=== PATIENT | male | born 1955 | race Caucasian/White ===

== ENCOUNTER → 2016-12-26 | Outpatient (CLI) | payer OTHER ==
[~2016-12-26] VITALS: Ht 182.9 cm; Wt 116.1 kg
[~2016-12-26] MED LIST: ASPI81TA85 PO; ATOR1TAB18 PO; BISO5TAB5 PO; GLIM4TAB PO; LIDOCAINE 2% INJ 100 MG/5 ML SDV (FOR ANES.) As Ordered ONE; LISI10TA4 PO; METF1000 PO; NS 1,000 ML IV SCH; OMEG100011 PO; PANT40TA2 PO; PROPOFOL 200 MG/20 ML VIAL As Ordered ONE; ZETI10TA2 PO; fentaNYL 100 MCG/2 ML INJECTION (J3010) As Ordered ONE
--- NOTE | 2016-12-26 11:12 | ROOR ---
Patient Name: Jn Osborn Procedure Date: 12/26/2016 10:51 AM Date of : 1955 Age: 61 Room: [facility] [place] Gender: Male Note Status: Finalized Procedure: Upper GI endoscopy + Biopsies Indications: Heartburn, Follow-up of Clay's esophagus Providers: Ousmane Roland MD Referring MD: MIRIAN ZHANG MD Requesting Provider: Medicines: Monitored Anesthesia Care Complications: No immediate complications. Procedure: Pre-Anesthesia Assessment: - The heart rate, respiratory rate, oxygen saturations, blood pressure, adequacy of pulmonary ventilation, and response to care were monitored throughout the procedure. The Endoscope was introduced through the mouth, and advanced to the second part of duodenum. The upper GI endoscopy was accomplished without difficulty. The patient tolerated the procedure well. Findings: The Z-line was irregular and was found 40 cm from the incisors. Multiple biopsies were obtained with cold forceps for evaluation to rule out Clay's Esophagus randomly at the gastroesophageal junction. A small hiatal hernia was present. No other significant abnormalities were identified in a careful examination of the stomach. The exam of the duodenum was otherwise normal. Impression: - Z-line irregular, 40 cm from the incisors. - Small hiatal hernia. - Multiple biopsies were obtained at the gastroesophageal junction. - The examination was otherwise normal. Recommendation: - Patient has a contact number available for emergencies. The signs and symptoms of potential delayed complications were discussed with the patient. Return to normal activities tomorrow. Written discharge instructions were provided to the patient. - High fiber diet. - Discharge patient to home. - Follow an antireflux regimen. - Continue present medications. - Await pathology results. - Telephone GI clinic for pathology results in 1 week. - Return to referring physician. - The findings and recommendations were discussed with the patient's family. Ousmane Roland MD Ousmane Roland MD 12/26/2016 11:11:47 AM This report has been signed electronically. Number of Addenda: 0 Note Initiated On: 12/26/2016 10:51 AM Estimated Blood Loss: Estimated blood loss: none.
--- NOTE | 2016-12-26 11:48 | ROOR ---
Patient Name: Jn Osborn Procedure Date: 12/26/2016 10:52 AM Date of : 1955 Age: 61 Room: [facility] [place] Gender: Male Note Status: Finalized Procedure: Colonoscopy to Cecum + Cold Snare Polypectomy + Hemoclips Indications: Screening for colorectal malignant neoplasm, Last colonoscopy: 2006 Providers: Ousmane Roland MD Referring MD: MIRIAN ZHANG MD Requesting Provider: Medicines: Monitored Anesthesia Care Complications: No immediate complications. Procedure: Pre-Anesthesia Assessment: - The heart rate, respiratory rate, oxygen saturations, blood pressure, adequacy of pulmonary ventilation, and response to care were monitored throughout the procedure. The Colonoscope was introduced through the anus and advanced to the cecum, identified by appendiceal orifice and ileocecal valve. The colonoscopy was performed without difficulty. The patient tolerated the procedure well. The quality of the bowel preparation was excellent. Findings: The perianal and digital rectal examinations were normal. Non-bleeding internal hemorrhoids were found during retroflexion. The hemorrhoids were small and Grade I (internal hemorrhoids that do not prolapse). Scattered small-mouthed diverticula were found in the recto-sigmoid colon, sigmoid colon and descending colon. A medium polyp was found in the proximal transverse colon. The polyp was sessile. The polyp was removed with a cold snare. Resection and retrieval were complete. To prevent bleeding after the polypectomy, one hemostatic clip was successfully placed (MR conditional). There was no bleeding at the end of the procedure. A small polyp was found at 50 cm proximal to the anus. The polyp was sessile. The polyp was removed with a cold snare. Resection and retrieval were complete. To prevent bleeding after the polypectomy, one hemostatic clip was successfully placed (MR conditional). There was no bleeding at the end of the procedure. Multiple sessile polyps were found at 30 cm proximal to the anus. The polyps were small in size. These polyps were removed with a cold snare. Resection and retrieval were complete. The exam was otherwise without abnormality on direct and retroflexion views. Impression: - Non-bleeding internal hemorrhoids. - Diverticulosis in the recto-sigmoid colon, in the sigmoid colon and in the descending colon. - One medium polyp in the proximal transverse colon, removed with a cold snare. Resected and retrieved. Clip (MR conditional) was placed. - One small polyp at 50 cm proximal to the anus, removed with a cold snare. Resected and retrieved. Clip (MR conditional) was placed. - Multiple small polyps at 30 cm proximal to the anus, removed with a cold snare. Resected and retrieved. - The examination was otherwise normal on direct and retroflexion views. - The exam was otherwise normal to the cecum. Recommendation: - Patient has a contact number available for emergencies. The signs and symptoms of potential delayed complications were discussed with the patient. Return to normal activities tomorrow. Written discharge instructions were provided to the patient. - High fiber diet. - Discharge patient to home. - Continue present medications. - Await pathology results. - Telephone GI clinic for pathology results in 1 week. - Repeat colonoscopy in 5 years for surveillance based on pathology results. - Return to referring physician. - The findings and recommendations were discussed with the patient's family. Ousmane Roland MD Ousmane Roland MD 12/26/2016 11:47:38 AM This report has been signed electronically. Number of Addenda: 0 Note Initiated On: 12/26/2016 10:52 AM Estimated Blood Loss: Estimated blood loss: none.
[2016-12-26 12:04] VITALS: BP 148/79
== END ==
LOC: M OPP 09:40
PROVIDERS: ATTEND Internal Medicine Gastroenterology
DX: Z12.11 Encounter for screening for malignant neoplasm of colon (principal); D12.5 Benign neoplasm of sigmoid colon; D12.3 Benign neoplasm of transverse colon; K57.30 Diverticulosis of large intestine without perforation or abscess without bleeding; K64.0 First degree hemorrhoids; Z86.010 Personal history of colon polyps; K22.70 Barrett's esophagus without dysplasia; K22.8 Other specified diseases of esophagus; K44.9 Diaphragmatic hernia without obstruction or gangrene; E78.5 Hyperlipidemia, unspecified; I10 Essential (primary) hypertension; E11.9 Type 2 diabetes mellitus without complications; I25.10 Atherosclerotic heart disease of native coronary artery without angina pectoris; G47.30 Sleep apnea, unspecified; I25.2 Old myocardial infarction; R06.83 Snoring; Z88.0 Allergy status to penicillin; Z88.8 Allergy status to other drugs, medicaments and biological substances; Z79.82 Long term (current) use of aspirin; Z79.84 Long term (current) use of oral hypoglycemic drugs; Z79.899 Other long term (current) drug therapy; Z87.891 Personal history of nicotine dependence; Z95.5 Presence of coronary angioplasty implant and graft; Z80.3 Family history of malignant neoplasm of breast
CPT/HCPCS: 43239; 45385; 88305; 99156; 99157; J3010

== ENCOUNTER → 2017-01-28 | Outpatient (CLI) | payer OTHER ==
[~2017-01-28] MED LIST changes: -LIDOCAINE 2% INJ 100 MG/5 ML SDV (FOR ANES.) As Ordered ONE; -NS 1,000 ML IV SCH; -PROPOFOL 200 MG/20 ML VIAL As Ordered ONE; -fentaNYL 100 MCG/2 ML INJECTION (J3010) As Ordered ONE
[2017-01-30 00:07] LABS: PLASMA COBALT 4.8 ug/L (0.0-0.9)
== END ==
LOC: M WUC 09:41
PROVIDERS: ATTEND Orthopaedic Surgery
DX: T56.891A Toxic effect of other metals, accidental (unintentional), initial encounter (principal); M25.559 Pain in unspecified hip; T56.2X1A Toxic effect of chromium and its compounds, accidental (unintentional), initial encounter

== ENCOUNTER → 2017-06-18 | Outpatient (CLI) | payer OTHER ==
[~2017-06-18] MED LIST changes: -ATOR1TAB18 PO; +ATOR80TA59 PO; -METF1000 PO; +METF10004 PO; -ZETI10TA2 PO; +ZETI10TA30 PO
[2017-06-18 13:16] LABS: BASO % 0.8 % (0.0-1.0); EOS # 0.4 K/mm3 (0.0-0.50); EOS % 5.8 % (0.0-3.0); LARGE UNSTAINED CELL # 0.1 K/mm3 (0.0-0.4); LARGE UNSTAINED CELL % 1.6 % (0.0-4.0); LYMPH # 1.6 K/mm3 (1.5-4.5); LYMPH % 24.3 % (24.0-44.0); MEAN CORPUSCULAR HEMOGLOBIN 30.2 pg (27.0-33.0); MEAN CORPUSCULAR VOLUME 91.6 fl (80.0-96.0); MONO # 0.3 K/mm3 (0.0-0.8); MONO % 5.1 % (0.0-5.0); NEUTROPHILS # 3.9 K/mm3 (1.8-7.7); NEUTROPHILS % 62.4 % (36.0-66.0); PLATELET COUNT, AUTOMATED 170 k/mm3 (150-450); RED CELL DISTRIBUTION WIDTH 13.3 % (11.5-14.5); WHITE BLOOD COUNT 6.2 K/mm3 (4.0-10.0)
[2017-06-18 13:39] LABS: ALBUMIN 3.6 GM/DL (3.2-5.2); ALBUMIN/GLOBULIN RATIO 1.13 (1.00-1.93); ALKALINE PHOSPHATASE 75 U/L (45-117); ALT/SGPT 26 U/L (12-78); ANION GAP 6 MEQ/L (8-16); AST/SGOT 17 U/L (15-37); BILIRUBIN,TOTAL 0.9 MG/DL (0.2-1.0); BLOOD UREA NITROGEN 9 MG/DL (7-18); CALCIUM LEVEL 8.7 MG/DL (8.8-10.2); CARBON DIOXIDE LEVEL 28 MEQ/L (21-32); CHLORIDE LEVEL 107 MEQ/L (98-107); CHOLESTEROL LEVEL 94 MG/DL (<200); CREATININE FOR GFR 0.71 MG/DL (0.70-1.30); GLOMERULAR FILTRATION RATE > 60.0 (>49); GLUCOSE, FASTING 115 MG/DL (80-110); POTASSIUM SERUM 4.6 MEQ/L (3.5-5.1); SODIUM LEVEL 141 MEQ/L (136-145); TOTAL PROTEIN 6.8 GM/DL (6.4-8.2); TRIGLYCERIDES LEVEL 55 MG/DL (<150)
== END ==
LOC: M WUC 09:07
PROVIDERS: ATTEND Nurse Practitioner Family
DX: G47.33 Obstructive sleep apnea (adult) (pediatric) (principal); E11.9 Type 2 diabetes mellitus without complications; I10 Essential (primary) hypertension

== ENCOUNTER 2017-10-02 20:47 | Emergency (ER) | payer OTHER ==
[~2017-10-02] VITALS: Ht 182.9 cm; Wt 110.0 kg
[2017-10-02] MEDS ORDERED: BACLOFEN 10 MG TAB PO ONE (22:45)
[2017-10-02] MEDS ORDERED: PERCOCET 5MG/325MG TAB PO ONE (22:45)
[2017-10-03] MEDS ORDERED: MORPHINE 4 MG/ML 1ML SYRINGE IV ONE
--- NOTE | 2017-10-03 00:40 | REPUSA ---
CLINICAL HISTORY: Back pain. TECHNIQUE: Multiple axial images were obtained through the L1-L2, L2-L3, L3-L4, L4-L5 and L5-S1 inter spaces. Images were also reconstructed in coronal and sagittal planes. COMMENTS: Mild osteopenia of the visualized bones. Mild degenerative levoscoliosis apex at L3.There are diffuse spondylotic changes. Findings are demonstrated by disc space narrowing, osteophyte formation and deg enerative endplate changes. Facet joint arthropathy. No fracture or dislocation is seen. No aggressiv e bone lesion is noted. At L5-S1, moderate diffuse disc bulge and posterior osteophyte formation. Bilateral facet joint arthr opathy more prominent on the left side. Mild concentric spinal canal stenosis. Moderate right and sev ere left neural foramina narrowing. At L4-L5, moderate diffuse disc bulge and posterior osteophyte formation. Bilateral facet joint arthr opathy and ligamentum flavum hypertrophy. Severe concentric spinal canal stenosis. Moderate bilateral neural foramina narrowing. At L3-L4, mild diffuse disc bulge. Superimposed broad-based central disc protrusion. Bilateral facet joint arthropathy and ligamentum flavum hypertrophy. Mild concentric spinal canal stenosis. Moderate bilateral neural foramina narrowing. At L2-L3, moderate diffuse disc bulge. Bilateral facet joint arthropathy and ligamentum flavum hypert rophy. The spinal canal is not narrowed. Mild bilateral neural foramina narrowing. At L1-L2, moderate diffuse disc bulge. Bilateral facet joint arthropathy and ligamentum flavum hypert rophy. The spinal canal is not narrowed. Mild bilateral neural foramina narrowing. At T12-L1, mild diffuse disc bulge and posterior osteophyte formation. The spinal canal is not narrow ed. Mild bilateral neural foramina narrowing. Atherosclerotic, tortuous ectatic aorta iliac arteries. Impression: Spondylosis. Multilevel degenerative disc disease. Multilevel significant spinal canal and neural foramina stenosis as detailed above. Thank you for your kind referral of this patient.
[2017-10-03] MEDS ORDERED: KETOROLAC 30 MG/ML VIAL (J1885) IV ONE (01:00)
[2017-10-03] MEDS ORDERED: VALI5TAB PO (01:39)
[2017-10-03] MEDS ORDERED: KETO10TAB PO (01:39)
[2017-10-03 02:11] VITALS: BP 111/54
== END 2017-10-03 02:13 | disposition home or self-care (01) ==
LOC: M ED 20:47
DX: M48.07 Spinal stenosis, lumbosacral region (principal); M48.061 Spinal stenosis, lumbar region without neurogenic claudication; M47.816 Spondylosis without myelopathy or radiculopathy, lumbar region; M51.36 Other intervertebral disc degeneration, lumbar region; M51.26 Other intervertebral disc displacement, lumbar region; M51.27 Other intervertebral disc displacement, lumbosacral region; M51.24 Other intervertebral disc displacement, thoracic region; M51.25 Other intervertebral disc displacement, thoracolumbar region; G89.29 Other chronic pain; I25.10 Atherosclerotic heart disease of native coronary artery without angina pectoris; E11.9 Type 2 diabetes mellitus without complications; G47.33 Obstructive sleep apnea (adult) (pediatric); E78.5 Hyperlipidemia, unspecified; F17.210 Nicotine dependence, cigarettes, uncomplicated; I25.2 Old myocardial infarction; Z79.899 Other long term (current) drug therapy; Z79.82 Long term (current) use of aspirin; Z88.0 Allergy status to penicillin; Z88.8 Allergy status to other drugs, medicaments and biological substances; Z86.79 Personal history of other diseases of the circulatory system; Z87.828 Personal history of other (healed) physical injury and trauma; Z98.890 Other specified postprocedural states; Z95.5 Presence of coronary angioplasty implant and graft
CPT/HCPCS: 72131; 96374; 96375; 99284; J1885; J3360

== ENCOUNTER → 2017-10-07 | Outpatient (CLI) | payer OTHER ==
[~2017-10-07] MED LIST changes: +KETO10TAB PO; +VALI5TAB PO
[2017-10-07 18:00] LABS: BASO % 0.4 % (0.0-1.0); EOS # 0.3 10^3/uL (0.0-0.50); EOS % 4.4 % (0.0-3.0); IMMATURE GRANULOCYTE % 0.4 % (0-0); LYMPH # 1.9 10^3/uL (1.5-4.5); MEAN CORPUSCULAR HEMOGLOBIN 29.6 pg (27.0-33.0); MEAN CORPUSCULAR HGB CONC 32.9 g/dl (32.0-36.5); MEAN CORPUSCULAR VOLUME 90.1 fl (80.0-96.0); MONO # 0.5 10^3/uL (0.0-0.8); MONO % 6.9 % (0.0-5.0); NEUTROPHILS # 4.7 10^3/uL (1.8-7.7); NEUTROPHILS % 62.9 % (36.0-66.0); PLATELET COUNT, AUTOMATED 221 10^3/uL (150-450); WHITE BLOOD COUNT 7.5 10^3/uL (4.0-10.0)
[2017-10-07 18:41] LABS: ALBUMIN/GLOBULIN RATIO 1.21 (1.00-1.93); ALKALINE PHOSPHATASE 82 U/L (45-117); ALT/SGPT 31 U/L (12-78); ANION GAP 7 MEQ/L (8-16); AST/SGOT 15 U/L (7-37); BILIRUBIN,TOTAL 1.5 MG/DL (0.2-1.0); BLOOD UREA NITROGEN 15 MG/DL (7-18); CALCIUM LEVEL 9.3 MG/DL (8.8-10.2); CARBON DIOXIDE LEVEL 29 MEQ/L (21-32); CHLORIDE LEVEL 101 MEQ/L (98-107); CHOLESTEROL LEVEL 118 MG/DL (<200); CREATININE FOR GFR 0.79 MG/DL (0.70-1.30); GLOMERULAR FILTRATION RATE > 60.0 (>49); GLUCOSE, FASTING 101 MG/DL (80-110); POTASSIUM SERUM 4.8 MEQ/L (3.5-5.1); SODIUM LEVEL 137 MEQ/L (136-145); TOTAL PROTEIN 7.3 GM/DL (6.4-8.2); TRIGLYCERIDES LEVEL 99 MG/DL (<150)
== END ==
LOC: M WUC 11:03
PROVIDERS: ATTEND Nurse Practitioner Family
DX: G47.33 Obstructive sleep apnea (adult) (pediatric) (principal); I10 Essential (primary) hypertension; E11.9 Type 2 diabetes mellitus without complications

== ENCOUNTER 2017-11-12 13:59 | Inpatient (IN) | payer OTHER ==
[~2017-11-12] VITALS: Ht 177.8 cm; Wt 114.0 kg
[2017-11-12] MEDS ORDERED: MELO15TA4 PO (14:16)
[2017-11-12] MEDS ORDERED: HYDR-3713 PO (14:16)
[2017-11-12] MEDS ORDERED: PERCOCET 5MG/325MG TAB PO ONE (14:45)
[2017-11-12 16:59] LABS: MEAN CORPUSCULAR HEMOGLOBIN 29.7 pg (27.0-33.0); MEAN CORPUSCULAR HGB CONC 34.9 g/dl (32.0-36.5); MEAN CORPUSCULAR VOLUME 85.2 fl (80.0-96.0); PLATELET COUNT, AUTOMATED 206 10^3/uL (150-450); RED CELL DISTRIBUTION WIDTH 12.5 % (11.5-14.5); WHITE BLOOD COUNT 9.5 10^3/uL (4.0-10.0)
[2017-11-12] MEDS ORDERED: GLUCOSE 4 GM CHEW TABLET PO PRN (18:00)
[2017-11-12] MEDS ORDERED: ONDANSETRON 4MG/2ML VIAL (J2405) IV PRN (18:00)
[2017-11-12] MEDS ORDERED: PERCOCET 5MG/325MG TAB PO PRN (18:00)
[2017-11-12] MEDS ORDERED: BISACODYL 10 MG SUPP PR PRN (18:00)
[2017-11-12] MEDS ORDERED: GLUCAGON FOR INJ 1 MG VIAL (J1610) SC PRN (18:00)
[2017-11-12] MEDS ORDERED: DEXTROSE 50% 50 ML SYRINGE IV PRN (18:00)
[2017-11-12] MEDS ORDERED: METF-839 PO (18:23)
[2017-11-12] MEDS ORDERED: CYCLOBENZAPRINE 5MG TABLET PO ONE (18:30)
--- NOTE | 2017-11-12 19:55 | HPEPDOC ---
General Date of Admission Nov 12, 2017 at 17:50 Primary Care Physician: Kaye Harrison [employer] INVESTIGATOR Attending Physician: JUDD ROWE MD Chief Complaint The patient is a 62-year-old male admitted with a reason for visit of Hip Pain, Inability To Ambulate Due To Hip. Source: Patient Exam Limitations: No limitations History of Present Illness Mr. Osborn is a 62-year-old male who presents to the emergency department with left hip pain. He states that he has been suffering from left hip pain for a few weeks now. Approximately 3 weeks ago he was seen and evaluated in the [facility] emergency department for low back pain and hip pain, a CT of the lumbar spine was obtained which showed mild to moderate disc bulging at multiple segments, but no specific etiology for his pain was told to him at that time. He was also seen 8 days ago by his orthopedic surgeon at [facility] for the same who took some x-rays in the office and informed him that his left hip prosthesis was in good position and gave him some pain medications and asked him to return to the office in 6 weeks if he continued to have problems. Earlier today he was sitting at the dinner table, he went to stand up when he felt an exquisitely sharp pain in the left hip, he sat right back down, and then he was unable to move from the chair because of pain. He states that the pain originates in his back and radiates down into the left hip, across the left lateral thigh and into the knee. Because he was unable to move the called EMS who lifted him on a stretcher and brought him into the emergency department for further evaluation. Emergency department did a hip x-ray series which was unremarkable. Home Medications Scheduled Aspirin (Aspir-81) 81 Mg Tab, 81 MG PO DAILY, (Reported) Atorvastatin Calcium (Atorvastatin Calcium) 80 Mg Tab, 80 MG PO QHS, (Reported) Bisoprolol Fumarate (Bisoprolol Fumarate) 5 Mg Tab, 2.5 MG PO DAILY, (Reported) Ezetimibe (Zetia) 10 Mg Tab, 10 MG PO DAILY, (Reported) Glimepiride (Glimepiride) 4 Mg Tab, 4 MG PO DAILY, (Reported) Lisinopril (Lisinopril) 10 Mg Tab, 10 MG PO QHS, (Reported) Meloxicam (Meloxicam) 15 Mg Tab, 15 MG PO QPM, (Reported) Metformin Hydrochloride (Metformin Hydrochloride) 500 Mg Tab, 1,000 MG PO BID, ( Reported) [place] 3 Polyunsat Fatty Acids ([place] 3 1000 mg) 1 Cap Cap, 2 CAP PO DAILY, ( Reported) Pantoprazole Sodium (Pantoprazole Sodium) 40 Mg Tab, 40 MG PO DAILY, (Reported) Scheduled PRN Acetaminophen/Hydrocodone (Hydrocodone/Acetaminophen 5-325 mg) 1 Tab Tab, 1 TAB PO Q6H PRN for PAIN, (Reported) Allergies Coded Allergies: Penicillins (Verified Allergy, Severe, THROAT SWELLING, 12/20/16) Penicillins Cross Reactors (Verified Allergy, Severe, THROAT SWELLING, 02/23) Bupropion (Verified Allergy, Unknown, 02/23/13) Past Medical History Medical History Diabetes mellitus type 2 Coronary artery disease status post 6 stents, being followed by Dr. Park Obstructive sleep apnea with CPAP, being followed by Dr. Felix Hyperlipidemia GERD with Clay's esophagus, being followed by Dr. Roland Chronic wheezing, he is told that he does not have asthma nor COPD by his trouble clerk Surgical History Coronary stenting ([facility]) 2002, 2004 Right hip total hip arthroplasty (Sukhw[facility] at [facility]) 2006 Left hip total hip arthroplasty (Sukhwinder at [facility]) 2013 Left shoulder ([place]) 2012 Family History Father had congestive heart failure and diabetes mellitus and at the age of 59 of a CVA. Mother at the age of 67 with a ruptured AAA. He has 3 sisters, one had lymphoma, one has COPD, the other is healthy. 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 Denies tuberculosis exposure. Review of Systems Constitutional: Denies: Chills, Fever, Night Sweats Eyes: Denies: Pain, Vision change ENT: Denies: Head Aches, Ear Pain, Dysphagia Skin: Denies: Rash, Lesions, Breakdown Pulmonary: Denies: Dyspnea, Cough Cardiovascular: Denies: Chest Pain, Palpitations, Orthopnea, Paroxysmal Noc. Dyspnea, Lt Headedness Gastrointestinal: Denies: Nausea, Vomiting, Abdominal Pain, Diarrhea Genitourinary: Denies: Dysuria, Frequency, Incontinence, Retention Hematologic: Denies: Bruising, Bleeding Excessively Musculoskeletal: Reports: Back Pain, Leg Pain, Joint Pain, Muscle Pain, Spasms , Denies: Neck Pain Neurological: Denies: Weakness, Numbness, Change in speech, Confusion Psych: Reports: Mood Normal, Denies: Depression, Memory Issues Physical Examination General Exam: Positive: Alert, Cooperative, Moderate Distress Eye Exam: Positive: Conjunctiva & lids normal, EOMI, Negative: Sclera icteric Neck Exam: Positive: Supple, Negative: JVD, thyromegaly Chest Exam: Positive: Clear to auscultation, Normal air movement Heart Exam: Positive: Rate Normal, Regular Rhythm, Normal S1, Normal S2, Negative: Murmurs, Rubs Abdomen Exam: Positive: Normal bowel sounds, Soft, Negative: Tenderness, Hepatospenomegaly Extremity Exam: Positive: Normal pulses, Negative: Clubbing, Cyanosis, Edema Skin Exam: Positive: Nl turgor and temperature, Negative: Breakdown, Lesion Neuro Exam: Positive: Normal Gait, Normal Speech, Strength at 5/5 X4 ext (he is able to move the lower extremity, albeit it is extremely painful. Sensation is preserved throughout), Cranial Nerves 3-12 NL Psych Exam: Positive: Mental status NL, Mood NL, Oriented x 3 Vital Signs Vital Signs Date Time Temp Pulse Resp B/P (MAP) Pulse Ox O2 Delivery O2 Flow Rate FiO2 11/12/17 18:30 97.0 60 20 149/70 (96) 97 Room Air Laboratory Data Labs 24H Laboratory Tests 2 11/12/17 16:50: Nucleated Red Blood Cells % (auto) 0.0 CBC/BMP Laboratory Tests 11/12/17 16:50 Red Blood Count 5.15, Mean Corpuscular Volume 85.2, Mean Corpuscular Hemoglobin 29.7, Mean Corpuscular Hemoglobin Concent 34.9, Red Cell Distribution Width 12.5 Problems (1) Inability to ambulate due to hip Status: Acute (2) Hip pain Status: Acute (3) Low back pain Status: Acute (4) Spondylosis Status: Chronic (5) DDD (degenerative disc disease) Status: Chronic (6) Spinal stenosis of lumbosacral region Status: Chronic (7) Diabetes mellitus type 2 in obese Status: Chronic (8) Hyperlipidemia Status: Chronic (9) Coronary artery disease Status: Chronic (10) Obstructive sleep apnea on CPAP Status: Chronic (11) GERD (gastroesophageal reflux disease) Status: Chronic Plan / VTE VTE Prophylaxis Ordered?: Yes (Lovenox) Plan Plan The patient appears to be describing his pain and now mostly perfect distribution of L3. He has had x-rays, and they lumbar CT performed 3 weeks ago , however given his acute event, I feel that an MRI this time would be warranted. The patient has been given narcotics over the past few weeks, none of them have given him relief, and he does not particularly like them. I will start him on 5 mg of Flexeril by mouth every 8 hours as needed for back spasms. He is a large man though, if this is insufficient and is not causing too much sedation perhaps the dose can be increased to 10 mg. Otherwise, we'll wait until we get the results of his MRI before doing any consults, especially in light of the fact that he was seen by his surgeon just last week. CATHERINE HICKMAN DO Nov 12, 2017 19:55
[2017-11-12 20:35] VITALS: BP 148/78
[2017-11-12] MEDS: HumaLOG INSULIN (NovoLOG) PER UNIT SC SCH (21:00)
[2017-11-12] MEDS: ATORVASTATIN 20 MG TAB PO SCH (21:18)
[2017-11-12] MEDS: MORPHINE 2 MG/ML 1ML SYRINGE IV PRN (21:19)
[2017-11-12] MEDS: SENOKOT S TAB PO SCH (21:19)
[2017-11-12] MEDS: LISINOPRIL 10 MG TAB PO SCH (21:19)
[2017-11-12] MEDS: MELOXICAM (MOBIC) 7.5 MG TAB PO SCH (21:20)
[2017-11-12] MEDS: PERCOCET 5MG/325MG TAB PO PRN (23:03)
[2017-11-13 06:00] VITALS: BP 122/72
[2017-11-13 07:01] LABS: MEAN CORPUSCULAR HEMOGLOBIN 29.7 pg (27.0-33.0); MEAN CORPUSCULAR HGB CONC 34.2 g/dl (32.0-36.5); MEAN CORPUSCULAR VOLUME 86.9 fl (80.0-96.0); PLATELET COUNT, AUTOMATED 204 10^3/uL (150-450); RED CELL DISTRIBUTION WIDTH 12.7 % (11.5-14.5); WHITE BLOOD COUNT 7.8 10^3/uL (4.0-10.0)
[2017-11-13 07:06] LABS: ANION GAP 7 MEQ/L (8-16); BLOOD UREA NITROGEN 21 MG/DL (7-18); CALCIUM LEVEL 8.5 MG/DL (8.8-10.2); CARBON DIOXIDE LEVEL 29 MEQ/L (21-32); CHLORIDE LEVEL 104 MEQ/L (98-107); CREATININE FOR GFR 0.85 MG/DL (0.70-1.30); GLOMERULAR FILTRATION RATE > 60.0 (>49); GLUCOSE, FASTING 126 MG/DL (80-110); POTASSIUM SERUM 3.8 MEQ/L (3.5-5.1); SODIUM LEVEL 140 MEQ/L (136-145)
[2017-11-13] MEDS: HumaLOG INSULIN (NovoLOG) PER UNIT SC SCH ×4 (07:30→20:53)
[2017-11-13] MEDS: SENOKOT S TAB PO SCH ×2 (08:39→20:58)
[2017-11-13] MEDS: PANTOPRAZOLE 40MG TAB (PROTONIX) PO SCH (08:39)
[2017-11-13] MEDS: GLIMEPIRIDE 2 MG TAB PO SCH (08:39)
[2017-11-13] MEDS: ASPIRIN 81 MG ENTERIC TAB PO SCH (08:39)
[2017-11-13] MEDS: CYCLOBENZAPRINE 5MG TABLET PO PRN ×2 (08:46→17:16)
[2017-11-13] MEDS: PERCOCET 5MG/325MG TAB PO PRN ×3 (08:47→20:59)
[2017-11-13] MEDS: ENOXAPARIN 40 MG/0.4 ML SYRINGE (J1650) SC SCH (08:47)
[2017-11-13] MEDS: EZETIMIBE 10 MG TAB (ZETIA) PO SCH (08:50)
[2017-11-13] MEDS: BISOPROLOL FUM 2.5 MG PER 1/2TAB PO SCH (08:51)
--- NOTE | 2017-11-13 10:43 | IPNPDOC ---
Subjective Date Seen The patient was seen on 11/13/17. Subjective Chief Complaint/HPI The patient is a 62-year-old male admitted with a reason for visit of Hip Pain, Inability To Ambulate Due To Hip. Events since last encounter Continues with significant LEFT hip pain, difficulty with ambulation. MRI completed: central canal stenosis at L4-5 and L5-S1 with bilateral foraminal encroachment. Constitutional: Denies: Chills, Fever, Night Sweats ENT: Denies: Head Aches, Ear Pain, Dysphagia Pulmonary: Denies: Dyspnea, Cough Cardiovascular: Denies: Chest Pain, Palpitations, Orthopnea, Paroxysmal Noc. Dyspnea, Edema, Lt Headedness, Other Symptoms Gastrointestinal: Denies: Nausea, Vomiting, Abdominal Pain, Diarrhea, Constipation Genitourinary: Denies: Dysuria, Frequency, Incontinence, Retention Objective Physical Examination General Exam: Positive: Alert, Cooperative, Moderate Distress Eye Exam: Positive: Conjunctiva & lids normal, EOMI, Negative: Sclera icteric Neck Exam: Positive: Supple, Negative: JVD, thyromegaly Chest Exam: Positive: Clear to auscultation, Normal air movement Heart Exam: Positive: Rate Normal, Regular Rhythm, Normal S1, Normal S2, Negative: Murmurs, Rubs Abdomen Exam: Positive: Normal bowel sounds, Soft, Negative: Tenderness, Hepatospenomegaly Extremity Exam: Positive: Normal pulses, Negative: Clubbing, Cyanosis, Edema Skin Exam: Positive: Nl turgor and temperature, Negative: Breakdown, Lesion Neuro Exam: Positive: Normal Gait, Normal Speech, Strength at 5/5 X4 ext (he is able to move the lower extremity, albeit it is extremely painful. Sensation is preserved throughout), Cranial Nerves 3-12 NL Psych Exam: Positive: Mental status NL, Mood NL, Oriented x 3 Assessment /Plan Problems (1) Spinal stenosis of lumbosacral region Status: Acute Problem Specific Plan: Consult Specialist Problem Text: Needs surgical evaluation. Dr. Wynn Consulted: Disc herniation and nerve compression. Likely surgical candidate (2) Inability to ambulate due to hip Status: Acute (3) Hip pain Status: Acute (4) Low back pain Status: Acute (5) Spondylosis Status: Chronic (6) DDD (degenerative disc disease) Status: Chronic (7) Diabetes mellitus type 2 in obese Status: Chronic (8) Hyperlipidemia Status: Chronic (9) Coronary artery disease Status: Chronic (10) Obstructive sleep apnea on CPAP Status: Chronic (11) GERD (gastroesophageal reflux disease) Status: Chronic Plan/VTE VTE Prophylaxis Ordered?: Yes (Lovenox) VS, I&O, 24H, Fishbone Vital Signs/I&O Vital Signs Date Time Temp Pulse Resp B/P (MAP) Pulse Ox O2 Delivery O2 Flow Rate FiO2 11/13/17 09:40 16 Room Air 11/13/17 08:51 64 11/13/17 06:00 97.8 122/72 (89) 95 I&O- Last 24 Hours up to 6 AM 11/13/17 06:00 Intake Total 540 ml Output Total 500 ml Balance 40 ml Laboratory Data 24H LABS Laboratory Tests 2 11/12/17 16:50: Nucleated Red Blood Cells % (auto) 0.0 11/12/17 20:45: Bedside Glucose (Misc Panel) 88 11/13/17 06:25: Nucleated Red Blood Cells % (auto) 0.0, Anion Gap 7L, Glomerular Filtration Rate > 60.0, Blood Urea Nitrogen 21H, Creatinine 0.85, Sodium Level 140, Potassium Level 3.8, Chloride Level 104, Carbon Dioxide Level 29, Calcium Level 8.5L CBC/BMP Laboratory Tests 11/12/17 16:50 Red Blood Count 5.15, Mean Corpuscular Volume 85.2, Mean Corpuscular Hemoglobin 29.7, Mean Corpuscular Hemoglobin Concent 34.9, Red Cell Distribution Width 12.5 11/13/17 06:25 Red Blood Count 4.95, Mean Corpuscular Volume 86.9, Mean Corpuscular Hemoglobin 29.7, Mean Corpuscular Hemoglobin Concent 34.2, Red Cell Distribution Width 12.7 , Calcium Level 8.5 L Kaye Harrison Nov 13, 2017 10:43 Senthil Salinas MD Nov 14, 2017 18:11
[2017-11-13] MEDS: GABAPENTIN 300 MG CAP PO SCH ×3 (11:15→20:58)
[2017-11-13] MEDS: methylPREDNISolone 4 MG TAB PO SCH ×2 (11:15→20:57)
[2017-11-13 14:00] VITALS: BP 124/68
--- NOTE | 2017-11-13 15:23 | REP ---
PELVIS LEFT HIP: THREE VIEWS. HISTORY: Pain. FINDINGS: AP and frog-leg views of the left hip and AP pelvis are obtained. In the interval since the 2010 prior study of the left hip, the patient has undergone left hip arthroplasty. A right hip replacement is also in place. Bony pelvic ring is otherwise intact. No erosive changes seen. Sacrum, SI joints, and symphysis pubis are unremarkable. There are some degenerative disc changes in the lower lumbar spine. IMPRESSION: Status post bilateral hip replacements. No acute disease. Signed by Omar Mcgee MD 11/13/2017 04:58 P
--- NOTE | 2017-11-13 17:31 | REP ---
MRI LUMBAR SPINE WITHOUT CONTRAST: 11/12/2017. Comparison: CT lumbar spine without contrast 10/02/2017. Clinical history: Left leg and hip pain. Appears to be L3-L4, dermatome. Technologist notes patient unable to ambulate. Technique: Sagittal T1, T2 and STIR images with axial T1 and T2 sequences provided. Findings: Loss of normal lordosis similar to the CT last month. Disc space is narrowed and there is extensive discogenic endplate changes at L4-5 posteriorly. There is loss of disc height and disc water signal at L3-4 and L5-S1. The height at L2-3 and L1-2 were maintained. The other vertebral bodies show no other significant marrow signal abnormalities. The conus terminates at L1. T11-12, T12-L1, L1-2 and L2-3 levels show no significant disc bulge or herniation and no spinal or foraminal stenosis. At L3-4, there is a large central disc protrusion and extrusion extending inferiorly from the disc space centrally and left paracentrally behind the upper half of the L4 vertebral body. This is contiguous with the intervertebral disc space. The extruded fragment has a 15.5 mm vertical diameter with an AP diameter of 9.3 mm and a transverse diameter of 12.2 mm. This is causing significant central canal stenosis and nerve root compression centrally and on the left side of the thecal sac with obliteration of almost all of the subarachnoid space. The foramina show perineural fat without L3 nerve root compression on either side. There is a very small posterior osteophytic ridging at this level, but the disc extrusion and protrusion below it at the disc level are the major abnormality. Some hypertrophic ligamentum and facet changes are noted. At L4-5, posterior osteophytic ridging, ligamentum flavum and facet hypertrophy causing significant central canal stenosis. This is as seen on the CT last month. This abuts and displaces the L5 nerve roots in the central canal. Very little subarachnoid space remains. The posterior osteophytic ridge with associated bulge and right paracentral protrusion at this level. The foramina show encroachment with loss of perineural fat bilaterally compared to a level above. The L4 roots show some mild compression from the foraminal narrowing. At L5-S1, mild broad-based disc bulge. This abuts the right S1 nerve root but does not displace it. It abuts the left S1 nerve root. Cross-sectional area of the canal was adequate. There is foraminal encroachment compressing the bilateral L5 nerve roots. Impression: 1. Advanced degenerative disc changes with significant central disc protrusion and extrusion at L3-4 with a large extruded fragment extending below the superior endplate margin of L4 15 x 12 x 9 mm causing significant central canal stenosis and nerve root compression in the canal without foraminal stenosis at this level. The disc protrusion is broad and central and the extrusion is central and slightly towards the left. No foraminal stenosis or L3 nerve root compression. 2. Combined factors contributing to central canal stenosis at L4-5 and L5-S1 to a lesser extent, but with bilateral foraminal encroachment at those levels. 3. I would recommend urgent neurosurgical consultation if not already arranged. Signed by Mc Moody MD 11/13/2017 05:32 P
--- NOTE | 2017-11-13 18:56 | CR ---
DATE OF CONSULTATION: 11/13/2017 CONSULTATION FOR: Dr. Ocampo CHIEF COMPLAINT: Back pain, pain radiating to his left hip and left anterior thigh. HISTORY: This is a pleasant 62-year-old male patient with ongoing symptoms for about 4 weeks now. Initially his symptoms started when he bent over to cut a piece of tape on a box. Noted mainly hip pain, a little bit of pain in his back. His symptoms were quite severe. He went to the emergency room, where he was treated with medications. Recommended he followup with his operative surgeon for his hip pain on the left side, as he has had total hip arthroplasty done on both sides. He did see his operative surgeon. He did not think it was coming from his total hip. Recommended activity modification and followup, and then he had an acute flare of his symptoms yesterday and increased hip pain, pain into his left anterior thigh, and inability to bear any weight on the left side due to the pain and weakness in the left leg. He was seen in the emergency room, where numerous studies were obtained, most notably for a large disc herniation at L3-4 with severe stenosis at that level. He was admitted to the hospitalist service for medical management for his persistent symptoms. He denies any loss of bowel or bladder control. He denies any change in his bowel or bladder habits. He does note persistent pain in the leg pain, mainly in the anterior thigh and hip and groin on the left side. Some pain in his back if he coughs or sneezes, as it severely increases his symptoms. He has been treated with pain medicine since he has gotten to the hospital, and he is somewhat better with pain medications, but the symptoms on his leg pain do not allow him to ambulate without severe pain in his left leg. He has a difficult time just sitting up in the bed. CURRENT MEDICATIONS: From home: Aspirin once a day, atorvastatin as well as bisoprolol, Zetia, glimepiride, lisinopril, meloxicam, metformin, pantoprazole. He also takes Tylenol #3 for pain control. ALLERGIES: PENICILLINS and BUPROPION MEDICAL HISTORY: Includes: 1. Severe back pain, pain down his right leg. 2. Spinal stenosis at 3-4 as well as degenerative changes at 4-5 and 5-1. 3. Diabetes type 2. 4. Coronary artery disease status post stenting. 5. Sleep apnea he uses a continuous positive airway pressure (CPAP) for. 6. Elevated lipids. 7. Gastric reflux disease. PAST SURGICAL HISTORY: 1. Includes above listed stenting. 2. Bilateral hip arthroplasties. 3. Left shoulder scope. FAMILY HISTORY: Noncontributory. SOCIAL HISTORY: He continues to smoke. He rarely uses alcohol. REVIEW OF SYSTEMS: Denies fever or chills. Denies chest pain, shortness breath , or cough. Denies difficulty breathing. Denies abdominal pain. Denies nausea or vomiting. He has persistent pain in his back and pain down his left leg with activities of daily living. Denies any recent upper respiratory infection (URI) or urinary tract infection (UTI) symptoms. Denies changes bowel or bladder habits. Exam today which reveals alert, well-nourished, well-developed male patient sitting in hospital stretcher, though when he goes to sit over the edge of the bed he does grimace getting from the somewhat reclined position to sitting straight on the edge of bed. Straight leg raise testing is irritable bilaterally. Deep tendon reflexes are absent in knees and ankles. Clonus is negative. Muscle strength seems grossly 5/5, equal and symmetrical in major muscle groups. No irritability with hip range of motion. The greater trochanters are nontender to palpation. Exam of back reveals very minimal tenderness along the lumbar spine rather diffusely. No step-offs or deviations. Sacroiliac joint (SI) joints are nontender to palpation. His neck is supple without adenopathy or jugular venous distention (JVD). He is able to sensate light touch in the lower extremities. Dorsalis pedis and posterior tibial pulses are palpable. His mood and affect are appropriate for situation. He has an easy, unlabored breathing. Abdomen is soft, nontender to palpation. Numerous studies were obtained, most significantly notable for, as previously discussed, the severe stenosis at L3-4, mainly to the left side, as well as degenerative changes of L4-5 and L5-S1. No appreciable slip noted. PLAN: Reviewed the patient and the studies with Dr. Wynn. The plan is that he was consented for a lumbar decompression unilaterally at L3-[address] Wynn. Plan is for tomorrow. Nothing by mouth tonight after midnight. Patient signed the consent. He understands the plan. All the studies were reviewed with the patient and of the patient. BETHANIE
[2017-11-13] MEDS: MELOXICAM (MOBIC) 7.5 MG TAB PO SCH (20:57)
[2017-11-13] MEDS: LISINOPRIL 10 MG TAB PO SCH (20:58)
[2017-11-13] MEDS: ATORVASTATIN 20 MG TAB PO SCH (20:58)
[2017-11-13 22:00] VITALS: BP 155/76
[2017-11-14] MEDS: PERCOCET 5MG/325MG TAB PO PRN (05:24)
[2017-11-14 06:00] VITALS: BP 138/75
[2017-11-14] MEDS ORDERED: CLINDAMYCIN 600 MG in APPROPRIATE DILUENT 1 EA IV SCH (06:45)
[2017-11-14 07:30] LABS: ANION GAP 5 MEQ/L (8-16); BLOOD UREA NITROGEN 23 MG/DL (7-18); CALCIUM LEVEL 8.4 MG/DL (8.8-10.2); CARBON DIOXIDE LEVEL 29 MEQ/L (21-32); CHLORIDE LEVEL 103 MEQ/L (98-107); CREATININE FOR GFR 0.85 MG/DL (0.70-1.30); GLOMERULAR FILTRATION RATE > 60.0 (>49); GLUCOSE, FASTING 193 MG/DL (80-110); POTASSIUM SERUM 4.7 MEQ/L (3.5-5.1); SODIUM LEVEL 137 MEQ/L (136-145)
[2017-11-14] MEDS: HumaLOG INSULIN (NovoLOG) PER UNIT SC SCH ×4 (07:30→21:00)
[2017-11-14] MEDS: ENOXAPARIN 40 MG/0.4 ML SYRINGE (J1650) SC SCH (08:04)
[2017-11-14] MEDS: ASPIRIN 81 MG ENTERIC TAB PO SCH (08:05)
[2017-11-14] MEDS: GABAPENTIN 300 MG CAP PO SCH ×2 (08:09→16:00)
[2017-11-14] MEDS: EZETIMIBE 10 MG TAB (ZETIA) PO SCH (08:09)
[2017-11-14] MEDS: SENOKOT S TAB PO SCH (08:09)
[2017-11-14] MEDS: PANTOPRAZOLE 40MG TAB (PROTONIX) PO SCH (08:09)
[2017-11-14] MEDS: GLIMEPIRIDE 2 MG TAB PO SCH (08:10)
[2017-11-14] MEDS: BISOPROLOL FUM 2.5 MG PER 1/2TAB PO SCH (08:10)
[2017-11-14] MEDS: methylPREDNISolone 4 MG TAB PO SCH (08:10)
--- NOTE | 2017-11-14 09:24 | IPNPDOC ---
Subjective Date Seen The patient was seen on 11/14/17. Subjective Chief Complaint/HPI The patient is a 62-year-old male admitted with a reason for visit of Hip Pain, Inability To Ambulate Due To Hip. Events since last encounter Planned surgical repair of Lumbar disc herniation today with Dr. Wynn. Patient denies c/o. Constitutional: Denies: Chills, Fever, Night Sweats Skin: Denies: Rash, Lesions, Breakdown Pulmonary: Denies: Dyspnea, Cough Cardiovascular: Denies: Chest Pain, Palpitations, Orthopnea, Paroxysmal Noc. Dyspnea, Edema, Lt Headedness, Other Symptoms Gastrointestinal: Denies: Nausea, Vomiting, Abdominal Pain, Diarrhea, Constipation Genitourinary: Denies: Dysuria, Frequency, Incontinence, Retention Objective Physical Examination General Exam: Positive: Alert, Cooperative, Moderate Distress Eye Exam: Positive: Conjunctiva & lids normal, EOMI, Negative: Sclera icteric Neck Exam: Positive: Supple, Negative: JVD, thyromegaly Chest Exam: Positive: Clear to auscultation, Normal air movement, Wheezing ( patient has faint wheezing. Reports this has been a chronic issue, workup in the past did not identify any underlying cause and the finding has not been responsive to bronchodilators in the past) Heart Exam: Positive: Rate Normal, Regular Rhythm, Normal S1, Normal S2, Negative: Murmurs, Rubs Abdomen Exam: Positive: Normal bowel sounds, Soft, Negative: Tenderness, Hepatospenomegaly Extremity Exam: Positive: Normal pulses, Negative: Clubbing, Cyanosis, Edema Skin Exam: Positive: Nl turgor and temperature, Negative: Breakdown, Lesion Neuro Exam: Positive: Normal Gait, Normal Speech, Strength at 5/5 X4 ext (he is able to move the lower extremity, albeit it is extremely painful. Sensation is preserved throughout), Cranial Nerves 3-12 NL Psych Exam: Positive: Mental status NL, Mood NL, Oriented x 3 Assessment /Plan Problems (1) Spinal stenosis of lumbosacral region Status: Acute Problem Specific Plan: Consult Specialist Problem Text: Planned surgical intervention today with Dr. Wynn, Orthopedics. Needs surgical evaluation. Dr. Wynn Consulted: (2) Inability to ambulate due to hip Status: Acute (3) Hip pain Status: Acute (4) Obstructive sleep apnea on CPAP Status: Chronic Problem Specific Plan: Monitor Clinically Problem Text: has home CPAP. will need to use postoperatively. Needs CARLEY monitoring post-op. (5) Spondylosis Status: Chronic (6) DDD (degenerative disc disease) Status: Chronic (7) Diabetes mellitus type 2 in obese Status: Chronic Problem Text: NPO prior to surgery. monitor BS q 6 hrs. RISS (8) Hyperlipidemia Status: Chronic (9) Coronary artery disease Status: Chronic (10) GERD (gastroesophageal reflux disease) Status: Chronic Plan/VTE VTE Prophylaxis Ordered?: Yes (Lovenox) VS, I&O, 24H, Fishbone Vital Signs/I&O Vital Signs Date Time Temp Pulse Resp B/P (MAP) Pulse Ox O2 Delivery O2 Flow Rate FiO2 11/14/17 08:10 62 138/75 11/14/17 06:00 98.1 16 96 Room Air I&O- Last 24 Hours up to 6 AM 11/14/17 06:00 Intake Total 2160 ml Output Total 1375 ml Balance 785 ml Laboratory Data 24H LABS Laboratory Tests 2 11/13/17 12:46: Bedside Glucose (Misc Panel) 111 11/13/17 16:38: Bedside Glucose (Misc Panel) 153H 11/13/17 20:05: Bedside Glucose (Misc Panel) 214H 11/14/17 06:34: Anion Gap 5L, Glomerular Filtration Rate > 60.0, Blood Urea Nitrogen 23H, Creatinine 0.85, Sodium Level 137, Potassium Level 4.7#, Chloride Level 103, Carbon Dioxide Level 29, Calcium Level 8.4L CBC/BMP Laboratory Tests 11/14/17 06:34 Calcium Level 8.4 L Kaye Harrison Nov 14, 2017 09:24 Senthil Salinas MD Nov 14, 2017 18:13
[2017-11-14] MEDS: MORPHINE 2 MG/ML 1ML SYRINGE IV PRN ×3 (11:07→20:00)
[2017-11-14 14:00] VITALS: BP 148/72
[2017-11-14] MEDS ORDERED: PROPOFOL 200 MG/20 ML VIAL As Ordered ONE ×3 (14:17→15:29)
[2017-11-14] MEDS ORDERED: ONDANSETRON 4MG/2ML VIAL (J2405) As Ordered ONE ×2 (14:17→15:29)
[2017-11-14] MEDS ORDERED: dexameTHASONE 4 MG/ML 1ML VIAL (J1100) As Ordered ONE ×2 (14:17→15:29)
[2017-11-14] MEDS ORDERED: ROCURONIUM BROMIDE 50 MG/5 ML VIAL As Ordered ONE ×3 (14:17→23:00)
[2017-11-14] MEDS ORDERED: LIDOCAINE W/EPINEPHRINE 1% 20ML VIAL As Ordered ONE (14:18)
[2017-11-14] MEDS ORDERED: BACITRACIN PWD 50,000 UNITS VIAL As Ordered ONE (14:18)
[2017-11-14] MEDS ORDERED: MIDAZOLAM INJ 2 MG/2 ML VIAL (J2250) As Ordered ONE (14:18)
[2017-11-14] MEDS ORDERED: THROMBIN SOLN 20,000 UNITS KIT As Ordered ONE (14:18)
[2017-11-14] MEDS ORDERED: fentaNYL 250 MCG/5 ML INJECTION (J3010) As Ordered ONE (14:18)
[2017-11-14] MEDS ORDERED: GLYCOPYRROLATE INJ 0.2 MG/ML 2 ML VIAL As Ordered ONE ×2 (14:25→15:29)
[2017-11-14] MEDS ORDERED: NEOSTIGMINE 10 MG/10 ML VIAL (J2710) As Ordered ONE ×2 (14:25→15:29)
--- NOTE | 2017-11-14 19:19 | ECGEPIP ---
Stationary ECG Study [facility] Test Date: 2017-11-14 Pat Name: NAT LAWRENCE Department: Room: [place] [address] Gender: M Associate Sales: : 1955 Requested By: Elroy Valadez Order Number: [id number] Reading MD: Дмитрий Ribera Measurements Intervals [place] Rate: 63 P: 40 DC: 142 QRS: 56 QRSD: 88 T: 61 QT: 398 QTc: 410 Interpretive Statements SINUS RHYTHM Comparison tracing not on file Electronically Signed On 11-14-2017 19:19:07 EST by Дмитрий Ribera
[2017-11-14] MEDS: MELOXICAM (MOBIC) 7.5 MG TAB PO SCH (21:00)
[2017-11-14 21:45] VITALS: BP 152/79
[2017-11-14] MEDS ORDERED: VANCOMYCIN 1000 MG/20 ML VIAL (J3370) As Ordered ONE (22:39)
[2017-11-15] MEDS ORDERED: ONDANSETRON 4MG/2ML VIAL (J2405) As Ordered ONE (00:34)
[2017-11-15] MEDS ORDERED: NEOSTIGMINE 10 MG/10 ML VIAL (J2710) As Ordered ONE (00:34)
[2017-11-15] MEDS ORDERED: GLYCOPYRROLATE INJ 0.2 MG/ML 2 ML VIAL As Ordered ONE (00:34)
[2017-11-15] MEDS ORDERED: BUPIVACAINE HCL 0.5% 10 ML VIAL As Ordered ONE (00:37)
[2017-11-15] MEDS ORDERED: fentaNYL 100 MCG/2 ML INJECTION (J3010) IV PRN (01:15)
[2017-11-15] MEDS ORDERED: LR 1,000 ML IV SCH (01:15)
[2017-11-15] MEDS ORDERED: MORPHINE 10 MG/ML 1ML VIAL IV PRN (01:15)
[2017-11-15] MEDS ORDERED: ONDANSETRON 4MG/2ML VIAL (J2405) IV PRN (01:15)
[2017-11-15] MEDS ORDERED: PERCOCET 5MG/325MG TAB As Ordered ONE ×2 (01:25→01:34)
[2017-11-15] MEDS: PERCOCET 5MG/325MG TAB PO PRN ×5 (01:29→15:29)
[2017-11-15] MEDS ORDERED: PROMETHAZINE INJ 25 MG/ML VIAL (J2550) IV PRN (01:30)
[2017-11-15] MEDS ORDERED: MORPHINE 2 MG/ML 1ML SYRINGE IV PRN (01:30)
[2017-11-15] MEDS ORDERED: CelecoXIB (CeleBREX) 100 MG CAP PO ONE (01:30)
[2017-11-15] MEDS ORDERED: D5W/LR 1,000 ML IV SCH (01:30)
[2017-11-15 01:50] VITALS: BP 171/81
[2017-11-15 02:48] VITALS: BP 149/79
[2017-11-15] MEDS: SENOKOT S TAB PO SCH ×2 (02:55→08:25)
[2017-11-15] MEDS: ATORVASTATIN 20 MG TAB PO SCH (02:55)
[2017-11-15] MEDS: GABAPENTIN 300 MG CAP PO SCH ×3 (02:55→15:28)
[2017-11-15] MEDS: LISINOPRIL 10 MG TAB PO SCH (02:56)
[2017-11-15 04:00] VITALS: BP 129/72
[2017-11-15 06:00] VITALS: BP 135/71
[2017-11-15] MEDS ORDERED: VANCOMYCIN HCL 1,000 MG, VIAL MATE ADAPTER 1 EACH in D5W 250 ML IV ONE (07:00)
[2017-11-15 07:43] LABS: ANION GAP 9 MEQ/L (8-16); BLOOD UREA NITROGEN 22 MG/DL (7-18); CALCIUM LEVEL 8.6 MG/DL (8.8-10.2); CARBON DIOXIDE LEVEL 26 MEQ/L (21-32); CHLORIDE LEVEL 100 MEQ/L (98-107); CREATININE FOR GFR 1.16 MG/DL (0.70-1.30); GLOMERULAR FILTRATION RATE > 60.0 (>49); GLUCOSE, FASTING 207 MG/DL (80-110); POTASSIUM SERUM 4.4 MEQ/L (3.5-5.1); SODIUM LEVEL 135 MEQ/L (136-145)
[2017-11-15] MEDS: EZETIMIBE 10 MG TAB (ZETIA) PO SCH (08:25)
[2017-11-15] MEDS: PANTOPRAZOLE 40MG TAB (PROTONIX) PO SCH (08:25)
[2017-11-15] MEDS: HumaLOG INSULIN (NovoLOG) PER UNIT SC SCH ×2 (08:25→12:10)
[2017-11-15] MEDS: ASPIRIN 81 MG ENTERIC TAB PO SCH (08:25)
[2017-11-15 08:26] VITALS: BP 135/71
[2017-11-15] MEDS: BISOPROLOL FUM 2.5 MG PER 1/2TAB PO SCH (08:26)
[2017-11-15] MEDS: GLIMEPIRIDE 2 MG TAB PO SCH (08:26)
[2017-11-15] MEDS ORDERED: MOM 30ML SUSPENSION UDC PO SCH (09:00)
[2017-11-15] MEDS ORDERED: METAMUCIL (PSYLLIUM) PACKET PO SCH (09:00)
--- NOTE | 2017-11-15 09:09 | REP ---
Partial lumbar spine series: Two views. History: Intraoperative views. L4 discectomy. Findings: The portable cross table lateral view of the lumbar spine time stamped 10:57 p.m. demonstrates a metallic needle at the level of the posterior elements at L3. A second portable cross table lateral view time stamped 11:20 p.m. shows an intraoperative probe at the L2-3 disc level at the dorsal aspect of the spinal canal. Signed by Omar Mcgee MD 11/15/2017 01:34 P
--- NOTE | 2017-11-15 09:35 | IPNPDOC ---
Subjective Date Seen The patient was seen on 11/15/17. Subjective Chief Complaint/HPI The patient is a 62-year-old male admitted with a reason for visit of Hip Pain, Inability To Ambulate Due To Hip. Constitutional: Denies: Chills, Fever ENT: Denies: Head Aches Skin: Denies: Rash Pulmonary: Reports: Cough (chronic stable), Denies: Dyspnea Cardiovascular: Denies: Chest Pain, Palpitations, Orthopnea Gastrointestinal: Denies: Nausea, Vomiting, Abdominal Pain Objective Physical Examination General Exam: Positive: Alert, Cooperative, Moderate Distress Eye Exam: Positive: Conjunctiva & lids normal, EOMI, Negative: Sclera icteric Neck Exam: Positive: Supple, Negative: JVD, thyromegaly Chest Exam: Positive: Clear to auscultation, Normal air movement, Wheezing ( patient has faint wheezing, mostly right side. Reports this has been a chronic issue, workup in the past did not identify any underlying cause and the finding has not been responsive to bronchodilators in the past) Heart Exam: Positive: Rate Normal, Regular Rhythm, Normal S1, Normal S2, Negative: Murmurs, Rubs Abdomen Exam: Positive: Normal bowel sounds, Soft, Negative: Tenderness, Hepatospenomegaly Extremity Exam: Positive: Normal pulses, Negative: Clubbing, Cyanosis, Edema Skin Exam: Positive: Nl turgor and temperature, Negative: Breakdown, Lesion Neuro Exam: Positive: Normal Speech, Strength at 5/5 X4 ext (he is able to move the lower extremity, albeit it is extremely painful. Sensation is preserved throughout), Cranial Nerves 3-12 NL Psych Exam: Positive: Mental status NL, Mood NL, Oriented x 3 Assessment /Plan Problems (1) Spinal stenosis of lumbosacral region Status: Acute Problem Specific Plan: Consult Specialist Problem Text: 11/15: doing well. pain essentially resolved. some low back discomfort expected once he ambulates. likelyi discharge later today, according to Dr. Wynn. Needs surgical evaluation. Dr. Wynn Consulted: Disc herniation and nerve compression. Likely surgical candidate (2) Inability to ambulate due to hip Status: Acute (3) Hip pain Status: Acute Response to Treatment: Improving (4) Low back pain Status: Acute Response to Treatment: Improving (5) Spondylosis Status: Chronic (6) DDD (degenerative disc disease) Status: Chronic (7) Diabetes mellitus type 2 in obese Status: Chronic Response to Treatment: Stable (8) Hyperlipidemia Status: Chronic Response to Treatment: Stable (9) Coronary artery disease Status: Chronic Response to Treatment: Stable Problem Text: negative nuclear stress test 10/30/17. hx of stent in LAD, circumflex, 2002 (10) Obstructive sleep apnea on CPAP Status: Chronic (11) GERD (gastroesophageal reflux disease) Status: Chronic Plan/VTE VTE Prophylaxis Ordered?: Yes (Lovenox) Plan Anticipated Discharge: Home (likely discharge later today) [facility] V[facility] Signs/I&O Vital Signs Date Time Temp Pulse Resp B/P (MAP) Pulse Ox O2 Delivery O2 Flow Rate FiO2 11/15/17 08:26 69 135/71 11/15/17 07:15 18 11/15/17 06:00 97.7 96 Room Air I&O- Last 24 Hours up to 6 AM 11/15/17 06:00 Intake Total 2215 ml Output Total 2675 ml Balance -460 ml Laboratory Data 24H LABS Laboratory Tests 2 11/14/17 11:27: Bedside Glucose (Misc Panel) 146H 11/14/17 16:30: Bedside Glucose (Misc Panel) 108 11/14/17 20:26: Bedside Glucose (Misc Panel) 116H 11/15/17 05:21: Bedside Glucose (Misc Panel) 224H 11/15/17 06:49: Anion Gap 9, Glomerular Filtration Rate > 60.0, Blood Urea Nitrogen 22H, Creatinine 1.16, Sodium Level 135L, Potassium Level 4.4, Chloride Level 100, Carbon Dioxide Level 26, Calcium Level 8.6L CBC/BMP Laboratory Tests 11/15/17 06:49 Calcium Level 8.6 L Senthil Salinas MD Nov 15, 2017 09:34
[2017-11-15] MEDS ORDERED: METAPKT PO (09:58)
[2017-11-15 14:00] VITALS: BP 154/64
--- NOTE | 2017-11-17 10:41 | IPN ---
DATE: 11/15/2017 SUBJECTIVE: The patient's pain is no change. He has no cough, fever or abdominal pain. He is eagerly anticipating surgery this evening by Dr. Wynn to alleviate nerve compression related to large disc herniation. He does have history of CAD with stents to LAD and circumflex, but recent nuclear stress test did not show evidence of ischemia VITAL SIGNS: 148/72 pressure, pulse 57, respiratory rate 18, oxygen saturation 95% on room air, temperature 98.7. On examination, he is alert, pleasant and cooperative. He has some wheezing that is audible in the bases bilaterally, but more prominent on the right. He says he has had this problem essentially his whole life and extensive workup has failed to find a cause for it and has not been responsive to bronchodilators historically. Heart shows regular rate and rhythm, bradycardic as noted. No prominent murmur. Abdomen is soft, nontender. No guarding. Her pulses are satisfactory. ASSESSMENT: Patient with large disc herniation, candidate for surgery. I see at this time no impediments for proceeding and should be a reasonable candidate for this operation with history of stable CAD without active cardiovascular symptoms and well controlled DM. BETHANIE
--- NOTE | 2017-11-19 14:28 | DSES ---
DATE OF ADMISSION: 11/14/2017 DATE OF DISCHARGE: 11/15/2017 Patient presented to the emergency department (ED) with complaint of back pain, inability to walk due to severe pain radiating into the left leg. Evaluation showed a large disc herniation with nerve compression at L3-4 and associated central canal stenosis at L4-5 and L5-S1. The patient was evaluated by Dr. Wynn and deemed a suitable candidate for surgery, taken to the operating room (OR) where lumbar decompression surgery was carried out unilaterally by Dr. Wynn at L3-4. Postoperatively, patient is doing well with reduced pain, ambulating with walker, and Dr. Wynn indicates the patient is ready for discharge. Patient's past medical history is remarkable for well-controlled diabetes. Last A1c was seen 6.0 done in September. He has history of coronary disease with a circumflex and LAD stent placed in 2002. Negative nuclear medicine stress test was done on 10/30/2017. Therefore, patient was felt to be a suitable candidate to proceed to the OR. At the time of discharge, he is up and around, functional status has improved, less pain. He is walking with a walker, and examination is remarkable only for residual wheezing in the right chest, which the patient reports he has had for many years and has been extensively worked up and is not responsive to bronchodilator therapy. Patient will be discharged on following medications: - psyllium one packet daily for constipation management, prevention - hydrocodone/acetaminophen one tablet every 6 hours as needed pain, which he had been prescribed before admission - aspirin 81 mg daily - atorvastatin 80 mg daily - bisoprolol 2.5 mg daily - Zetia 10 mg daily - glimepiride 4 mg daily - lisinopril 10 mg daily - meloxicam 15 mg daily as needed for pain - metformin 1000 mg by mouth twice a day - omega 3 fatty acids one capsule of 1,000 mg, he takes two capsules daily - pantoprazole 40 mg daily Any other prescriptions would be specified by orthopedics. Activity will be as tolerated. Avoid lifting. Followup with Dr. Wynn per his recommendation. Followup with his primary care provider in 2 weeks or sooner as needed. Diet will be usual diet. Encouraged adequate water intake and use of high-fiber such as the psyllium packet to reduce risk for constipation associated with narcotic use.
--- NOTE | 2017-11-19 17:34 | RO ---
DATE OF PROCEDURE: 11/14/2017 PREOPERATIVE DIAGNOSIS: Left L3-4 lumbar spinal stenosis secondary to very large disk herniation at L3-4. POSTOPERATIVE DIAGNOSIS: Left L3-4 lumbar spinal stenosis secondary to very large disk herniation at L3-4. PROCEDURE PERFORMED: L3 left unilateral laminectomy including decompression of the thecal sac exiting traversing nerve roots, L4 left unilateral laminectomy including decompression of the thecal sac and nerve roots. FINDINGS: Findings included a very large disk herniation producing severe spinal stenosis affecting not only the local L3-4 nerve roots, but the entire thecal sac and cauda equina. SURGEON: Dr. Wynn AERIAL SURVEY TECHNICIAN: Arthur Preciado ANESTHESIA: General. ESTIMATED BLOOD LOSS: 50 mL replaced with crystalloid. COMPLICATIONS: No complications. INDICATIONS: Intractable discomfort radiating down both lower extremities predominantly on the left lower extremity. MRI evidence of very large disk herniation producing severe spinal stenosis. INDICATIONS FOR SURGERY: Urgently, a very large painful disc herniation. Next, consent reviewed in detail with the patient including jaspreet discussion of the pathology involved procedure proposed, alternatives including doing nothing and risks including but not limited to pain, failure, infection, bleeding blood loss, incomplete relief of symptoms need for additional surgery, paralysis, infection and other issues. The patient agrees to proceed. OPERATIVE COURSE: Identified in the holding area. Site and side verified and brought to the operating room. General endotracheal anesthesia was administered. He was positioned on the Durga frame for exposure of the lumbar spine and knees slightly flexed. Axillary rolls were utilized. Mr. Preciado stood predominately on the right and I on the left. Utilized 3.5 loupe magnification as well as a headlamp initially. Once our time-out was accomplished and he was sterilely prepped and draped we began the surgical procedure. Next, the incision was based on the spinal needle and a cross-table lateral x-ray as well as landmarks. The incision was outlined with a marking pen and infiltrated with 1% lidocaine with epinephrine made with the 10 blade knife developed down through skin subcuticular tissues to the posterior lumbar fascia. Posterior lumbar fascia was reflected back from the spinous processes of 3 and 4 on the left side. Dissection continued towards the left 3-4 interspace. Next, we obtained a cross-table lateral against a Nielsen Newsome which was drilled in the lamina of two. This verified our level and the top aspect of the L3 lamina. Next, dissection continued exposing through the L4 lamina superior aspect. Next, once the entire candice-lamina 3 and the superior candice-lamina at 4 were exposed, we placed the shadow line retractor and the operating microscope was draped for remaining portions of the procedure. Next, I looked through oculars on the left and Mr. Preciado through oculars on the right. Loupe magnification was removed and headlamp removed. Next, the high-speed bur was now utilized to implement the left unilateral laminectomy. This extended superiorly through the bare area of L3 undercutting the L3 spinous process and very much care was taken to avoid the pars interarticularis of 3 at this narrow level and to minimize facet debridement to about 10% to 15% of the medial aspect the facet complex. Once I had undercut the spinous process of 3 to allow for safe decompression we continued inferiorly undercutting the spinous process 4 and 3-4 lamina to the bare area of 4. Next, once this was accomplished I utilized curved curettes to remove ligamentum flavum. The thecal sac was appreciated to be displaced posteriorly because of the large disc herniation which had inferiorly migrated. Next, Nielsen Newsome was utilized to carefully sublux the thecal sac medially. There is significant tension on the thecal sac. This needs to be done carefully. Mr. Preciado assisted and retaining the thecal sac and I obtained an 11 blade knife. I opened the bulging posterior longitudinal ligament and this allowed exposure of the extruded disk material. A Tavares Pituitary was utilized to ease disc material from the subligamentous position. In piecemeal fashion a large extruded disk fragment that was producing severe spinal stenosis was removed. Next, bipolar cautery was utilized for hemostasis. Next, disc space explored using a regular pituitary and probe. Next, we did not appreciate any additional disk material neural foramina were appreciated be patent. Irrigation was accomplished. Next, retractors were removed posterior lumbar fascia was reapproximated with interrupted stitch deep dermis with interrupted stitch. A pernio dressing was utilized on skin. Next, at that point the patient was moved back to the hospital bed, extubated, moved to the recovery room in good condition. The patient even in the recovery room and expressing relief of his significant discomfort. For further details please refer to medical record. Mr. Preciado was present and participated in the entirety of the case.
== END 2017-11-15 15:34 | disposition home or self-care (01) | DRG 520 ==
LOC: EDBD 13:59 → M ED 13:59 → M ED INP 17:50 → M MS5PR 20:35 → OBSVTOIN 11-14 11:27
PROVIDERS: ADMIT Internal Medicine Nephrology; ATTEND Family Medicine
PROC: 01NB0ZZ Release Lumbar Nerve, Open Approach (ICD-10-PCS; 2017-11-14)
PROC: 0SB20ZZ Excision of Lumbar Vertebral Disc, Open Approach (ICD-10-PCS; principal; 2017-11-14 11:00)
DX: M48.07 Spinal stenosis, lumbosacral region (principal); M25.552 Pain in left hip; I25.10 Atherosclerotic heart disease of native coronary artery without angina pectoris; M47.9 Spondylosis, unspecified; K22.70 Barrett's esophagus without dysplasia; F17.210 Nicotine dependence, cigarettes, uncomplicated; K21.9 Gastro-esophageal reflux disease without esophagitis; E78.5 Hyperlipidemia, unspecified; E11.9 Type 2 diabetes mellitus without complications; G47.33 Obstructive sleep apnea (adult) (pediatric); Z79.82 Long term (current) use of aspirin; Z79.84 Long term (current) use of oral hypoglycemic drugs; Z79.899 Other long term (current) drug therapy; Z88.0 Allergy status to penicillin; Z88.8 Allergy status to other drugs, medicaments and biological substances; Z95.9 Presence of cardiac and vascular implant and graft, unspecified; Z99.89 Dependence on other enabling machines and devices; Z96.643 Presence of artificial hip joint, bilateral

== ENCOUNTER → 2018-08-04 | Outpatient (CLI) | payer OTHER ==
[2018-08-04 09:15] LABS: HEMATOCRIT 45.7 % (42.0-52.0); HEMOGLOBIN 15.5 g/dl (13.5-17.5); MEAN CORPUSCULAR HEMOGLOBIN 29.8 pg (27.0-33.0); MEAN CORPUSCULAR HGB CONC 33.9 g/dl (32.0-36.5); MEAN CORPUSCULAR VOLUME 87.9 fl (80.0-96.0); PLATELET COUNT, AUTOMATED 182 10^3/uL (150-450); RED CELL DISTRIBUTION WIDTH 13.2 % (11.5-14.5); WHITE BLOOD COUNT 6.3 10^3/uL (4.0-10.0)
[2018-08-04 09:33] LABS: ALBUMIN 3.7 GM/DL (3.2-5.2); ALBUMIN/GLOBULIN RATIO 1.23 (1.00-1.93); ALKALINE PHOSPHATASE 75 U/L (45-117); ALT/SGPT 27 U/L (12-78); ANION GAP 8 MEQ/L (8-16); AST/SGOT 18 U/L (7-37); BILIRUBIN,TOTAL 1.6 MG/DL (0.2-1.0); BLOOD UREA NITROGEN 13 MG/DL (7-18); CALCIUM LEVEL 8.7 MG/DL (8.8-10.2); CARBON DIOXIDE LEVEL 28 MEQ/L (21-32); CHLORIDE LEVEL 105 MEQ/L (98-107); CHOLESTEROL LEVEL 111 MG/DL (<200); CHOLESTEROL RISK RATIO 2.921 (<5); CREATININE FOR GFR 0.76 MG/DL (0.70-1.30); GLOMERULAR FILTRATION RATE > 60.0 (>49); GLUCOSE, FASTING 119 MG/DL (70-100); HDL CHOLESTEROL 38 MG/DL (>40); LDL CHOLESTEROL 53.4 MG/DL (<100); NON-HDL-C 73 MG/DL; POTASSIUM SERUM 4.5 MEQ/L (3.5-5.1); SODIUM LEVEL 141 MEQ/L (136-145); TOTAL PROTEIN 6.7 GM/DL (6.4-8.2); TRIGLYCERIDES LEVEL 98 MG/DL (<150)
== END ==
LOC: M WUC 08:02
DX: I25.10 Atherosclerotic heart disease of native coronary artery without angina pectoris (principal)
CPT/HCPCS: 80053

== ENCOUNTER → 2018-11-20 | Outpatient (CLI) | payer OTHER ==
[~2018-11-20] MED LIST changes: +HYDR-3713 PO; +MELO15TA28 PO; +METAPKT PO; +METF-839 PO; +METF-877 PO; -PANT40TA2 PO; +PANT40TA3 PO; +PRED20TA PO; +PROAAER10; +TESS100C PO
== END ==
LOC: M WUC 08:13
PROVIDERS: ATTEND Physician Assistant Surgical
DX: T56.2X Toxic effects of chromium and its compounds (principal)

== ENCOUNTER → 2019-01-20 | Outpatient (CLI) | payer OTHER ==
--- NOTE | 2019-01-20 10:15 | REP ---
MRI right hip without contrast: History: Right hip pain. History of bilateral hip replacement. Comparison radiographs November 12, 2017. Technique: Coronal T1 and T2-weighted scans were acquired of both hips. Axial, coronal and sagittal T2 weighted smaller field of view images of the right hip were obtained. A metal artifact reduction software was deployed for the study. Findings: There is unfortunately considerable metallic field susceptibility artifact emanating from the prosthetic hip components bilaterally, right a little more prominently than left. This obliterates the soft tissues immediately adjacent to the prosthetic components. No soft tissue fluid collection or mass lesion is seen. The adjacent bony structures show normal cortical and medullary bone signal intensity. No mass or adenopathy is seen. Impression: No abnormality noted. Status post bilateral hip arthroplasty. Considerable metallic field susceptibility artifact limits visualization immediately adjacent to the prosthetic components. Electronically Signed by Omar Mcgee MD 01/20/2019 07:27 P
== END ==
LOC: M RAD 07:06
PROVIDERS: ATTEND Orthopaedic Surgery
DX: M25.551 Pain in right hip (principal)

== ENCOUNTER → 2019-01-28 | Outpatient (CLI) | payer OTHER ==
[2019-01-28 12:40] LABS: BASO % 0.7 % (0.0-1.0); EOS # 0.2 10^3/uL (0.0-0.50); HEMATOCRIT 44.6 % (42.0-52.0); HEMOGLOBIN 14.7 g/dl (13.5-17.5); LYMPH # 1.6 10^3/uL (1.5-4.5); LYMPH % 26.9 % (24.0-44.0); MEAN CORPUSCULAR HEMOGLOBIN 29.7 pg (27.0-33.0); MEAN CORPUSCULAR VOLUME 90.1 fl (80.0-96.0); MONO # 0.4 10^3/uL (0.0-0.8); MONO % 6.7 % (0.0-5.0); NEUTROPHILS # 3.7 10^3/uL (1.8-7.7); NEUTROPHILS % 61.4 % (36.0-66.0); PLATELET COUNT, AUTOMATED 163 10^3/uL (150-450); RED BLOOD COUNT 4.95 10^6/uL (4.30-6.10)
[2019-01-28 12:59] LABS: ALBUMIN 3.5 GM/DL (3.2-5.2); ALT/SGPT 20 U/L (12-78); BILIRUBIN,TOTAL 1.4 MG/DL (0.2-1.0); BLOOD UREA NITROGEN 9 MG/DL (7-18); CALCIUM LEVEL 8.7 MG/DL (8.8-10.2); CARBON DIOXIDE LEVEL 28 MEQ/L (21-32); CHLORIDE LEVEL 105 MEQ/L (98-107); CHOLESTEROL LEVEL 101 MG/DL (<200); CHOLESTEROL RISK RATIO 2.885 (<5); CREATININE FOR GFR 0.66 MG/DL (0.70-1.30); GLOMERULAR FILTRATION RATE > 60.0 (>49); GLUCOSE, FASTING 110 MG/DL (70-100); HDL CHOLESTEROL 35 MG/DL (>40); LDL CHOLESTEROL 53 MG/DL (<100); NON-HDL-C 66 MG/DL; POTASSIUM SERUM 4.7 MEQ/L (3.5-5.1); SODIUM LEVEL 140 MEQ/L (136-145); TOTAL PROTEIN 6.4 GM/DL (6.4-8.2); TRIGLYCERIDES LEVEL 67 MG/DL (<150)
== END ==
LOC: M WUC 10:22
PROVIDERS: ATTEND Nurse Practitioner Family
DX: E11.9 Type 2 diabetes mellitus without complications (principal); G47.33 Obstructive sleep apnea (adult) (pediatric)

== ENCOUNTER → 2019-08-06 | Outpatient (REF) | payer OTHER ==
[~2019-08-06] MED LIST changes: -BISO5TAB5 PO; +BISO5TAB9 PO; +KONS100P6 PO; -METAPKT PO; +ZETI10TA16 PO; -ZETI10TA30 PO
[2019-08-06 13:46] LABS: BASO % 0.6 % (0.0-1.0); EOS # 0.3 10^3/uL (0.0-0.5); EOS % 4.5 % (0.0-3.0); HEMATOCRIT 46.9 % (42.0-52.0); HEMOGLOBIN 15.3 g/dl (13.5-17.5); LYMPH # 1.5 10^3/uL (1.5-5.0); LYMPH % 22.3 % (24.0-44.0); MEAN CORPUSCULAR HEMOGLOBIN 29.4 pg (27.0-33.0); MEAN CORPUSCULAR HGB CONC 32.6 g/dl (32.0-36.5); MONO # 0.5 10^3/uL (0.0-0.8); MONO % 7.8 % (0.0-5.0); NEUTROPHILS # 4.3 10^3/uL (1.5-8.5); NEUTROPHILS % 64.5 % (36.0-66.0); PLATELET COUNT, AUTOMATED 189 10^3/uL (150-450); RED BLOOD COUNT 5.21 10^6/uL (4.30-6.10); WHITE BLOOD COUNT 6.7 10^3/uL (4.0-10.0)
[2019-08-06 13:48] LABS: ALBUMIN 3.4 GM/DL (3.2-5.2); ALT/SGPT 25 U/L (12-78); BLOOD UREA NITROGEN 12 MG/DL (7-18); CALCIUM LEVEL 8.6 MG/DL (8.8-10.2); CARBON DIOXIDE LEVEL 29 MEQ/L (21-32); CHLORIDE LEVEL 106 MEQ/L (98-107); CHOLESTEROL LEVEL 100 MG/DL (<200); CHOLESTEROL RISK RATIO 2.631 (<5); CREATININE FOR GFR 0.75 MG/DL (0.70-1.30); GLOMERULAR FILTRATION RATE > 60.0 (>49); GLUCOSE, FASTING 124 MG/DL (70-100); HDL CHOLESTEROL 38 MG/DL (>40); LDL CHOLESTEROL 48 MG/DL (<100); NON-HDL-C 62 MG/DL; POTASSIUM SERUM 4.4 MEQ/L (3.5-5.1); SODIUM LEVEL 143 MEQ/L (136-145); TOTAL PROTEIN 6.6 GM/DL (6.4-8.2); TRIGLYCERIDES LEVEL 69 MG/DL (<150)
[2019-08-06 14:10] LABS: HEMOGLOBIN A1c 6.6 %
[2019-08-06 14:12] LABS: MALB URINE SIEMENS 25.4 MG/L; MAU/CREAT RATIO 18.1 MCG/MG (0.0-30.0)
== END ==
LOC: M SFHCCLAY 07:23
PROVIDERS: ATTEND Nurse Practitioner Family
DX: E11.9 Type 2 diabetes mellitus without complications (principal); G47.33 Obstructive sleep apnea (adult) (pediatric)

== ENCOUNTER → 2019-08-06 | Outpatient (REF) | payer OTHER | LOC: M LABDRAWC 11:54 | PROVIDERS: ATTEND Orthopaedic Surgery | DX: Z47.89 Encounter for other orthopedic aftercare (principal); Z96.641 Presence of right artificial hip joint; M25.559 Pain in unspecified hip ==

== ENCOUNTER → 2019-12-01 | Outpatient (CLI) | payer OTHER ==
[~2019-12-01] MED LIST changes: -GLIM4TAB PO; +GLIM4TAB3 PO
[2019-12-04 00:07] LABS: CHROMIUM PLASMA 3.7 ug/L (0.1-2.1)
== END ==
LOC: M WUC 09:04
PROVIDERS: ATTEND Orthopaedic Surgery
DX: T56.891D Toxic effect of other metals, accidental (unintentional), subsequent encounter (principal); T56.2X Toxic effects of chromium and its compounds

== ENCOUNTER 2020-04-25 22:00 | Emergency (ER) | payer OTHER ==
[~2020-04-25] VITALS: Ht 175.3 cm; Wt 109.1 kg
[~2020-04-25 22:00] MED LIST changes: +BISO5TAB14 PO; -BISO5TAB9 PO; -GLIM4TAB3 PO; +GLIM4TAB5 PO
[2020-04-25] MEDS ORDERED: diazePAM 10MG/2ML SYRINGE (J3360 PER 5MG) IM ONE (22:45)
[2020-04-25] MEDS ORDERED: KETOROLAC 60MG 2ML VIAL IM ONE (22:45)
[2020-04-25] MEDS ORDERED: SOMA350T PO (22:51)
[2020-04-25] MEDS ORDERED: IBUP-1022 PO (22:51)
[2020-04-25 23:21] VITALS: BP 169/85
== END 2020-04-25 23:22 | disposition home or self-care (01) ==
LOC: M ED 22:00
DX: M54.5 Low back pain (principal); E11.9 Type 2 diabetes mellitus without complications; I11.9 Hypertensive heart disease without heart failure; K21.9 Gastro-esophageal reflux disease without esophagitis; F17.210 Nicotine dependence, cigarettes, uncomplicated; Z86.19 Personal history of other infectious and parasitic diseases; Z79.899 Other long term (current) drug therapy; Z88.0 Allergy status to penicillin; Z88.8 Allergy status to other drugs, medicaments and biological substances
CPT/HCPCS: 96372; 99283; J1885; J3360

== ENCOUNTER → 2020-05-16 | Outpatient (CLI) | payer OTHER ==
[~2020-05-16] MED LIST changes: +IBUP-1022 PO; +SOMA350T PO
[2020-05-16 11:44] LABS: HEMATOCRIT 46.6 % (42.0-52.0); HEMOGLOBIN 15.5 g/dl (13.5-17.5); MEAN CORPUSCULAR HEMOGLOBIN 30.5 pg (27.0-33.0); MEAN CORPUSCULAR HGB CONC 33.3 g/dl (32.0-36.5); MEAN CORPUSCULAR VOLUME 91.7 fl (80.0-96.0); PLATELET COUNT, AUTOMATED 172 10^3/uL (150-450); RED BLOOD COUNT 5.08 10^6/uL (4.30-6.10); WHITE BLOOD COUNT 6.5 10^3/uL (4.0-10.0)
[2020-05-16 12:00] LABS: BLOOD UREA NITROGEN 13 MG/DL (7-18); CALCIUM LEVEL 8.5 MG/DL (8.8-10.2); CARBON DIOXIDE LEVEL 28 MEQ/L (21-32); CHLORIDE LEVEL 106 MEQ/L (98-107); CHOLESTEROL LEVEL 120 MG/DL (<200); CHOLESTEROL RISK RATIO 3.529 (<5); CREATININE FOR GFR 0.74 MG/DL (0.70-1.30); GLOMERULAR FILTRATION RATE > 60.0 (>49); GLUCOSE, FASTING 122 MG/DL (70-100); HDL CHOLESTEROL 34 MG/DL (>40); LDL CHOLESTEROL 69 MG/DL (<100); NON-HDL-C 86 MG/DL; POTASSIUM SERUM 4.4 MEQ/L (3.5-5.1); SODIUM LEVEL 139 MEQ/L (136-145); TRIGLYCERIDES LEVEL 84 MG/DL (<150)
== END ==
LOC: M WUC 09:22
PROVIDERS: ATTEND Physician Assistant
DX: I11.9 Hypertensive heart disease without heart failure (principal)

== ENCOUNTER → 2020-11-16 | Outpatient (CLI) | payer OTHER ==
[~2020-11-16] MED LIST changes: -ASPI81TA85 PO; +ASPI81TA86 PO; +PANT40TA29 PO; -PANT40TA3 PO
--- NOTE | 2020-11-16 08:23 | REP ---
INDICATION: ABD AORTIC ECTASIA COMPARISON: None. TECHNIQUE: Real time haywood scale ultrasound examination using curved array transducer. FINDINGS: Examination and complete evaluation of the aorta is limited due to interposed bowel gas. 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 <Electronically signed by Darrel Deleon > 11/16/20 0856
== END ==
LOC: M RAD 07:22
PROVIDERS: ATTEND Physician Assistant
DX: I77.811 Abdominal aortic ectasia (principal)

== ENCOUNTER → 2021-01-30 | Outpatient (REF) | payer OTHER ==
[~2021-01-30] MED LIST changes: +LISI10TA22 PO; -LISI10TA4 PO
[2021-01-30 11:53] LABS: BASO % 0.7 % (0.0-1.0); EOS # 0.3 10^3/uL (0.0-0.5); EOS % 4.7 % (0.0-3.0); HEMATOCRIT 50.5 % (42.0-52.0); HEMOGLOBIN 16.4 g/dl (13.5-17.5); LYMPH # 1.4 10^3/uL (1.5-5.0); LYMPH % 22.3 % (24.0-44.0); MEAN CORPUSCULAR HEMOGLOBIN 29.2 pg (27.0-33.0); MEAN CORPUSCULAR HGB CONC 32.5 g/dl (32.0-36.5); MONO # 0.5 10^3/uL (0.0-0.8); MONO % 8.2 % (2.0-8.0); NEUTROPHILS # 3.9 10^3/uL (1.5-8.5); NEUTROPHILS % 63.8 % (36.0-66.0); PLATELET COUNT, AUTOMATED 187 10^3/uL (150-450); RED BLOOD COUNT 5.61 10^6/uL (4.30-6.10); WHITE BLOOD COUNT 6.1 10^3/uL (4.0-10.0)
[2021-01-30 12:19] LABS: ALBUMIN 3.7 GM/DL (3.2-5.2); ALT/SGPT 31 U/L (12-78); BILIRUBIN,TOTAL 1.4 MG/DL (0.2-1.0); BLOOD UREA NITROGEN 15 MG/DL (7-18); CALCIUM LEVEL 9.1 MG/DL (8.8-10.2); CARBON DIOXIDE LEVEL 31 MEQ/L (21-32); CHLORIDE LEVEL 103 MEQ/L (98-107); CHOLESTEROL LEVEL 148 MG/DL (<200); GLOMERULAR FILTRATION RATE > 60.0 (>49); GLUCOSE, FASTING 171 MG/DL (70-100); HDL CHOLESTEROL 37 MG/DL (>40); LDL CHOLESTEROL 88 MG/DL (<100); NON-HDL-C 111 MG/DL; POTASSIUM SERUM 4.4 MEQ/L (3.5-5.1); SODIUM LEVEL 137 MEQ/L (136-145); TOTAL PROTEIN 6.9 GM/DL (6.4-8.2); TRIGLYCERIDES LEVEL 113 MG/DL (<150)
[2021-01-30 12:25] LABS: MALB URINE SIEMENS 32.9 MG/L; MAU/CREAT RATIO 21.2 MCG/MG (0.0-30.0)
[2021-01-30 12:50] LABS: HEMOGLOBIN A1c 7.5 %
== END ==
LOC: M SFHCCLAY 07:32
PROVIDERS: ATTEND Nurse Practitioner Family
DX: E11.9 Type 2 diabetes mellitus without complications (principal); G47.33 Obstructive sleep apnea (adult) (pediatric)

== ENCOUNTER → 2021-01-30 | Outpatient (REF) | payer OTHER | LOC: M LABDRAWC 11:23 | PROVIDERS: ATTEND Orthopaedic Surgery | DX: T56.891A Toxic effect of other metals, accidental (unintentional), initial encounter (principal); Z96.641 Presence of right artificial hip joint; M25.551 Pain in right hip ==

== ENCOUNTER → 2021-02-07 | Outpatient (CLI) | payer OTHER ==
--- NOTE | 2021-02-07 17:41 | REP ---
INDICATION: CIGARETTE NICOTINE DEPENDENCE. COMPARISON: Comparison CT study March 04, 2007.. TECHNIQUE: Low-dose screening chest CT. 3 mm axial images at lung only windows. FINDINGS: There is vascular calcification including coronary artery vascular calcification again noted. The lung warner are well inflated and free of infiltrate. No pulmonary mass or significant pulmonary nodule is appreciated. No other abnormality. IMPRESSION: Lung RADS category 1 findings. Repeat screening study recommended in 1 year. <Electronically signed by Otis Mcgee > 02/07/21 1806
== END ==
LOC: M RAD 10:12
PROVIDERS: ATTEND Nurse Practitioner Family
DX: Z12.2 Encounter for screening for malignant neoplasm of respiratory organs (principal); F17.210 Nicotine dependence, cigarettes, uncomplicated; I25.10 Atherosclerotic heart disease of native coronary artery without angina pectoris; I25.84 Coronary atherosclerosis due to calcified coronary lesion

== ENCOUNTER → 2021-08-02 | Outpatient (REF) | payer OTHER ==
[2021-08-02 12:43] LABS: ALBUMIN 3.3 GM/DL (3.2-5.2); ALT/SGPT 24 U/L (12-78); BLOOD UREA NITROGEN 11 MG/DL (7-18); CARBON DIOXIDE LEVEL 31 MEQ/L (21-32); CHLORIDE LEVEL 105 MEQ/L (98-107); CREATININE FOR GFR 0.83 MG/DL (0.70-1.30); GLOMERULAR FILTRATION RATE > 60.0 (>49); GLUCOSE, FASTING 168 MG/DL (70-100); POTASSIUM SERUM 4.8 MEQ/L (3.5-5.1); SODIUM LEVEL 139 MEQ/L (136-145); TOTAL PROTEIN 6.5 GM/DL (6.4-8.2)
[2021-08-02 13:58] LABS: HEMOGLOBIN A1c 6.9 %
== END ==
LOC: M SFHCCLAY 07:29
PROVIDERS: ATTEND Nurse Practitioner Family
DX: E11.9 Type 2 diabetes mellitus without complications (principal)

== ENCOUNTER 2021-11-08 03:14 | Observation (INO) | payer OTHER ==
[~2021-11-08] VITALS: Ht 177.8 cm; Wt 105.5 kg
[2021-11-08 04:36] LABS: BASO % 0.5 % (0.0-1.0); EOS # 0.1 10^3/uL (0.0-0.5); EOS % 0.8 % (0.0-3.0); HEMATOCRIT 48.7 % (42.0-52.0); HEMOGLOBIN 16.6 g/dl (13.5-17.5); MEAN CORPUSCULAR HEMOGLOBIN 29.8 pg (27.0-33.0); MEAN CORPUSCULAR HGB CONC 34.1 g/dl (32.0-36.5); MEAN CORPUSCULAR VOLUME 87.4 fl (80.0-96.0); MONO # 0.4 10^3/uL (0.0-0.8); NEUTROPHILS # 7.3 10^3/uL (1.5-8.5); NEUTROPHILS % 82.5 % (36.0-66.0); PLATELET COUNT, AUTOMATED 186 10^3/uL (150-450); RED BLOOD COUNT 5.57 10^6/uL (4.30-6.10); WHITE BLOOD COUNT 8.8 10^3/uL (4.0-10.0)
[2021-11-08] MEDS ORDERED: ACETAMINOPHEN TAB 650MG DOSE (2X325MG) PO ONE (04:45)
[2021-11-08 05:10] LABS: ALBUMIN 3.9 GM/DL (3.2-5.2); ALT/SGPT 30 U/L (12-78); BLOOD UREA NITROGEN 17 MG/DL (7-18); CARBON DIOXIDE LEVEL 27 MEQ/L (21-32); CHLORIDE LEVEL 99 MEQ/L (98-107); CREATININE FOR GFR 0.88 MG/DL (0.70-1.30); GLOMERULAR FILTRATION RATE > 60.0 (>49); GLUCOSE, FASTING 175 MG/DL (70-100); MAGNESIUM LEVEL 1.6 MG/DL (1.8-2.4); POTASSIUM SERUM 4.5 MEQ/L (3.5-5.1); SODIUM LEVEL 132 MEQ/L (136-145); TOTAL PROTEIN 7.3 GM/DL (6.4-8.2)
[2021-11-08 05:13] LABS: RSV AMPLIFICATION NEGATIVE (NEGATIVE)
[2021-11-08 13:00] VITALS: BP 153/78
[2021-11-08] MEDS ORDERED: FISH1200 PO (13:29)
[2021-11-08] MEDS ORDERED: LISI20TA33 PO (13:29)
[2021-11-08] MEDS ORDERED: METF-839 PO (13:29)
[2021-11-08] MEDS ORDERED: ASPI81TA26 PO (13:30)
[2021-11-08] MEDS ORDERED: HOME MED LIST COMPLETE! XX SCH (13:30)
[2021-11-08] MEDS ORDERED: DEXTROSE 50% 50 ML SYRINGE IV PRN (15:25)
[2021-11-08] MEDS ORDERED: GLUCOSE 4GM CHEW TABLET PO PRN (15:25)
[2021-11-08] MEDS ORDERED: GLUCAGON INJ 1MG VIAL SC PRN (15:25)
[2021-11-08] MEDS ORDERED: ONDANSETRON 4MG/2ML VIAL IV PRN (15:45)
[2021-11-08] MEDS ORDERED: ACETAMINOPHEN 500 MG TAB PO PRN (15:45)
[2021-11-08] MEDS: IPRATROPIUM 0.5MG/ALBUTEROL 2.5MG INH SOL UD 3ML (DUONEB) NEB SCH ×2 (15:46→23:37)
[2021-11-08] MEDS: HumaLOG INSULIN (NovoLOG) PER UNIT SC SCH (18:28)
[2021-11-08] MEDS ORDERED: HumaLOG INSULIN (NovoLOG) PER UNIT SC SCH (21:00)
[2021-11-08] MEDS ORDERED: ATORVASTATIN 20 MG TAB PO SCH (21:00)
[2021-11-08 22:00] VITALS: BP 166/80
[2021-11-09 06:00] VITALS: BP 144/71
[2021-11-09] MEDS: IPRATROPIUM 0.5MG/ALBUTEROL 2.5MG INH SOL UD 3ML (DUONEB) NEB SCH (08:09)
[2021-11-09 08:33] VITALS: BP 120/58
[2021-11-09] MEDS: HumaLOG INSULIN (NovoLOG) PER UNIT SC SCH ×2 (08:34→12:00)
[2021-11-09] MEDS ORDERED: PANTOPRAZOLE 40MG TAB (PROTONIX) PO SCH (09:00)
[2021-11-09] MEDS ORDERED: ASPIRIN 81MG ENTERIC TABLET PO SCH (09:00)
[2021-11-09] MEDS ORDERED: EZETIMIBE 10MG TABLET (ZETIA) PO SCH (09:00)
[2021-11-09] MEDS ORDERED: COMBAER6 INH (09:39)
[2021-11-09] MEDS ORDERED: MAGNESIUM OXIDE 400MG TAB (MAG-OX) PO ONE (10:00)
[2021-11-09 10:55] LABS: BLOOD UREA NITROGEN 15 MG/DL (7-18); CALCIUM LEVEL 8.7 MG/DL (8.8-10.2); CARBON DIOXIDE LEVEL 27 MEQ/L (21-32); CHLORIDE LEVEL 103 MEQ/L (98-107); CREATININE FOR GFR 0.79 MG/DL (0.70-1.30); GLOMERULAR FILTRATION RATE > 60.0 (>49); GLUCOSE, FASTING 204 MG/DL (70-100); POTASSIUM SERUM 4.1 MEQ/L (3.5-5.1); SODIUM LEVEL 136 MEQ/L (136-145)
[2021-11-09] MEDS ORDERED: SPIR1CAP INH (12:20)
[2021-11-09] MEDS ORDERED: PROAAER10 INH (12:20)
== END 2021-11-09 12:34 | disposition home or self-care (01) ==
LOC: M ED 03:14 → M ED INP 03:15 → ENRESERV 11:35 → M MSPAV 12:45
PROVIDERS: ADMIT Internal Medicine Nephrology; ATTEND Internal Medicine Nephrology
DX: G43.909 Migraine, unspecified, not intractable, without status migrainosus (principal); G45.9 Transient cerebral ischemic attack, unspecified; E11.9 Type 2 diabetes mellitus without complications; I25.10 Atherosclerotic heart disease of native coronary artery without angina pectoris; Z98.61 Coronary angioplasty status; G47.33 Obstructive sleep apnea (adult) (pediatric); J44.9 Chronic obstructive pulmonary disease, unspecified; E78.5 Hyperlipidemia, unspecified; K21.9 Gastro-esophageal reflux disease without esophagitis; K22.70 Barrett's esophagus without dysplasia; I27.0 Primary pulmonary hypertension; I71.4 Abdominal aortic aneurysm, without rupture; K42.9 Umbilical hernia without obstruction or gangrene; Z79.82 Long term (current) use of aspirin; Z79.51 Long term (current) use of inhaled steroids; Z88.0 Allergy status to penicillin; Z79.84 Long term (current) use of oral hypoglycemic drugs

== ENCOUNTER → 2022-01-12 | Outpatient (CLI) | payer OTHER ==
[~2022-01-12] MED LIST changes: +ASPI81TA26 PO; +COMBAER6 INH; +FISH1200 PO; +LISI20TA33 PO; +PROAAER10 INH; +SPIR1CAP INH
[2022-01-13 18:37] LABS: BLOOD UREA NITROGEN 11 MG/DL (7-18); CREATININE FOR GFR 0.76 MG/DL (0.70-1.30); GLOMERULAR FILTRATION RATE > 60.0 (>49)
== END ==
LOC: M WUC 15:23
PROVIDERS: ATTEND Surgery Vascular Surgery
DX: Z51.81 Encounter for therapeutic drug level monitoring (principal); Z79.84 Long term (current) use of oral hypoglycemic drugs; Z79.82 Long term (current) use of aspirin; Z79.899 Other long term (current) drug therapy

== ENCOUNTER → 2022-01-31 | Outpatient (REF) | payer OTHER ==
[2022-01-31 11:58] LABS: BASO # 0.1 10^3/uL (0.0-0.2); EOS # 0.3 10^3/uL (0.0-0.5); EOS % 4.4 % (0.0-3.0); HEMATOCRIT 45.9 % (42.0-52.0); LYMPH # 1.4 10^3/uL (1.5-5.0); LYMPH % 22.9 % (24.0-44.0); MEAN CORPUSCULAR HEMOGLOBIN 28.8 pg (27.0-33.0); MEAN CORPUSCULAR HGB CONC 32.7 g/dl (32.0-36.5); MEAN CORPUSCULAR VOLUME 88.1 fl (80.0-96.0); MONO # 0.4 10^3/uL (0.0-0.8); MONO % 7.2 % (2.0-8.0); NEUTROPHILS # 3.8 10^3/uL (1.5-8.5); NEUTROPHILS % 64.2 % (36.0-66.0); PLATELET COUNT, AUTOMATED 171 10^3/uL (150-450); RED BLOOD COUNT 5.21 10^6/uL (4.30-6.10)
[2022-01-31 12:32] LABS: ALBUMIN 3.4 GM/DL (3.2-5.2); ALT/SGPT 33 U/L (12-78); BILIRUBIN,TOTAL 1.6 MG/DL (0.2-1.0); BLOOD UREA NITROGEN 14 MG/DL (7-18); CALCIUM LEVEL 8.8 MG/DL (8.8-10.2); CARBON DIOXIDE LEVEL 33 MEQ/L (21-32); CHLORIDE LEVEL 103 MEQ/L (98-107); CHOLESTEROL LEVEL 109 MG/DL (<200); CHOLESTEROL RISK RATIO 3.303 (<5); CREATININE FOR GFR 0.82 MG/DL (0.70-1.30); GLOMERULAR FILTRATION RATE > 60.0 (>49); GLUCOSE, FASTING 179 MG/DL (70-100); HDL CHOLESTEROL 33 MG/DL (>40); LDL CHOLESTEROL 61 MG/DL (<100); NON-HDL-C 76 MG/DL; POTASSIUM SERUM 4.8 MEQ/L (3.5-5.1); SODIUM LEVEL 137 MEQ/L (136-145); TOTAL PROTEIN 6.4 GM/DL (6.4-8.2); TRIGLYCERIDES LEVEL 75 MG/DL (<150)
[2022-01-31 12:36] LABS: MALB URINE SIEMENS 53.4 MG/L; MAU/CREAT RATIO 29.5 MCG/MG (0.0-30.0)
[2022-01-31 12:43] LABS: HEMOGLOBIN A1c 8.9 %
== END ==
LOC: M SFHCCLAY 07:34
PROVIDERS: ATTEND Nurse Practitioner Family
DX: E11.9 Type 2 diabetes mellitus without complications (principal); G47.33 Obstructive sleep apnea (adult) (pediatric)

== ENCOUNTER → 2022-02-20 | Outpatient (CLI) | payer OTHER | LOC: M WUC 11:20 | PROVIDERS: ATTEND Physician Assistant Surgical | DX: Z96.641 Presence of right artificial hip joint (principal); T56.2X1A Toxic effect of chromium and its compounds, accidental (unintentional), initial encounter ==

== ENCOUNTER → 2022-02-20 | Outpatient (CLI) | payer OTHER | LOC: M CARPUL 10:16 | PROVIDERS: ATTEND Nurse Practitioner Family | DX: G47.33 Obstructive sleep apnea (adult) (pediatric) (principal) ==

== ENCOUNTER → 2022-02-23 | Outpatient (CLI) | payer OTHER | LOC: M RAD 06:24 | PROVIDERS: ATTEND Nurse Practitioner Family | DX: Z12.2 Encounter for screening for malignant neoplasm of respiratory organs (principal); Z87.891 Personal history of nicotine dependence ==

== ENCOUNTER → 2022-06-26 | Outpatient (CLI) | payer MEDICARE, OTHER ==
[2022-06-26 16:42] LABS: HEMATOCRIT 47.7 % (42.0-52.0); HEMOGLOBIN 15.6 g/dl (13.5-17.5); MEAN CORPUSCULAR HEMOGLOBIN 29.5 pg (27.0-33.0); MEAN CORPUSCULAR HGB CONC 32.7 g/dl (32.0-36.5); MEAN CORPUSCULAR VOLUME 90.2 fl (80.0-96.0); PLATELET COUNT, AUTOMATED 218 10^3/uL (150-450); RED BLOOD COUNT 5.29 10^6/uL (4.30-6.10); WHITE BLOOD COUNT 7.8 10^3/uL (4.0-10.0)
[2022-06-26 17:36] LABS: ALBUMIN 3.6 GM/DL (3.2-5.2); ALT/SGPT 26 U/L (12-78); BLOOD UREA NITROGEN 14 MG/DL (7-18); CALCIUM LEVEL 8.9 MG/DL (8.8-10.2); CARBON DIOXIDE LEVEL 30 MEQ/L (21-32); CHLORIDE LEVEL 104 MEQ/L (98-107); CREATININE FOR GFR 0.78 MG/DL (0.70-1.30); GLOMERULAR FILTRATION RATE > 60.0 (>49); GLUCOSE, FASTING 118 MG/DL (70-100); MAGNESIUM LEVEL 1.6 MG/DL (1.8-2.4); NT-PRO BNP 46 PG/ML (<125); POTASSIUM SERUM 4.4 MEQ/L (3.5-5.1); SODIUM LEVEL 137 MEQ/L (136-145); TOTAL PROTEIN 6.8 GM/DL (6.4-8.2)
== END ==
LOC: M WUC 11:45
PROVIDERS: ATTEND Physician Assistant
DX: R53.83 Other fatigue (principal)

== ENCOUNTER → 2022-07-16 | Outpatient (REF) | payer MEDICARE, OTHER ==
[2022-07-16 17:56] LABS: HEMOGLOBIN A1c 7.1 %
[2022-07-16 18:33] LABS: ALBUMIN 3.5 GM/DL (3.2-5.2); ALT/SGPT 27 U/L (12-78); BILIRUBIN,TOTAL 1.6 MG/DL (0.2-1.0); BLOOD UREA NITROGEN 17 MG/DL (7-18); CALCIUM LEVEL 8.6 MG/DL (8.8-10.2); CARBON DIOXIDE LEVEL 26 MEQ/L (21-32); CHLORIDE LEVEL 102 MEQ/L (98-107); CREATININE FOR GFR 0.78 MG/DL (0.70-1.30); GLOMERULAR FILTRATION RATE > 60.0 (>49); GLUCOSE, FASTING 210 MG/DL (70-100); POTASSIUM SERUM 4.6 MEQ/L (3.5-5.1); SODIUM LEVEL 135 MEQ/L (136-145); TOTAL PROTEIN 6.2 GM/DL (6.4-8.2)
[2022-07-16 18:50] LABS: FREE T3 2.1 PG/ML (2.2-4.0); FREE T4 2.58 NG/DL (0.76-1.46)
[2022-07-16 19:14] LABS: THYROGLOBULIN ANTIBODY < 15.0 U/ML (<60.0); THYROID PEROXIDASE ANTIBODY 34.4 U/ML (<60.0)
== END ==
LOC: M SFHCCLAY 10:25
PROVIDERS: ATTEND Nurse Practitioner Family
DX: E11.9 Type 2 diabetes mellitus without complications (principal); R79.89 Other specified abnormal findings of blood chemistry

== ENCOUNTER → 2022-08-01 | Outpatient (CLI) | payer MEDICARE, OTHER | LOC: M RAD 10:32 | PROVIDERS: ATTEND Nurse Practitioner Family | DX: R79.89 Other specified abnormal findings of blood chemistry (principal) ==

== ENCOUNTER → 2022-12-04 | Outpatient (REF) | payer MEDICARE, OTHER ==
[2022-12-04 12:04] LABS: FREE T4 1.12 NG/DL (0.89-1.76); THYROID STIMULATING HORMONE 1.744 uIU/ML (0.55-4.78)
[2022-12-04 12:05] LABS: MAGNESIUM LEVEL 1.5 MG/DL (1.8-2.4)
[2022-12-04 12:06] LABS: FREE T3 3.5 PG/ML (2.3-4.2)
[2022-12-05 08:30] LABS: THYROGLOBULIN ANTIBODY < 15.0 U/ML (<60.0)
[2022-12-05 08:32] LABS: THYROID PEROXIDASE ANTIBODY 34 U/ML (<60.0)
== END ==
LOC: M SFHCCLAY 08:54
PROVIDERS: ATTEND Nurse Practitioner Family
DX: R79.89 Other specified abnormal findings of blood chemistry (principal); G43.409 Hemiplegic migraine, not intractable, without status migrainosus; E11.9 Type 2 diabetes mellitus without complications

== ENCOUNTER → 2022-12-11 | Outpatient (REF) | payer MEDICARE, OTHER | LOC: M LABDRAWC 16:57 | PROVIDERS: ATTEND Orthopaedic Surgery | DX: Z47.89 Encounter for other orthopedic aftercare (principal); M25.552 Pain in left hip; Z96.642 Presence of left artificial hip joint; T56.2X4A Toxic effect of chromium and its compounds, undetermined, initial encounter ==

== ENCOUNTER → 2023-04-10 | Outpatient (CLI) | payer MEDICARE, OTHER | LOC: M RAD 06:22 | PROVIDERS: ATTEND Nurse Practitioner Family | DX: Z87.891 Personal history of nicotine dependence (principal) ==

== ENCOUNTER → 2023-06-12 | Outpatient (REF) | payer MEDICARE, OTHER | LOC: M SFHCCLAY 06:53 | PROVIDERS: ATTEND Nurse Practitioner Family | DX: E11.9 Type 2 diabetes mellitus without complications (principal); R79.89 Other specified abnormal findings of blood chemistry; G47.33 Obstructive sleep apnea (adult) (pediatric); G43.409 Hemiplegic migraine, not intractable, without status migrainosus; I10 Essential (primary) hypertension; Z53.8 Procedure and treatment not carried out for other reasons ==

== ENCOUNTER → 2023-07-02 | Outpatient (REF) | payer MEDICARE, OTHER ==
[2023-07-02 18:22] LABS: BASO % 0.7 % (0.0-1.0); EOS # 0.2 10^3/uL (0.0-0.5); HEMATOCRIT 45.3 % (42.0-52.0); LYMPH # 1.6 10^3/uL (1.5-5.0); LYMPH % 25.7 % (24.0-44.0); MEAN CORPUSCULAR HEMOGLOBIN 29.6 pg (27.0-33.0); MEAN CORPUSCULAR HGB CONC 33.1 g/dl (32.0-36.5); MEAN CORPUSCULAR VOLUME 89.5 fl (80.0-96.0); MONO # 0.5 10^3/uL (0.0-0.8); MONO % 7.4 % (2.0-8.0); NEUTROPHILS # 3.8 10^3/uL (1.5-8.5); NEUTROPHILS % 62.9 % (36.0-66.0); PLATELET COUNT, AUTOMATED 170 10^3/uL (150-450); RED BLOOD COUNT 5.06 10^6/uL (4.30-6.10); WHITE BLOOD COUNT 6.1 10^3/uL (4.0-10.0)
[2023-07-02 18:31] LABS: HEMOGLOBIN A1c 7.5 % (4.0-6.0)
[2023-07-02 18:56] LABS: FREE T4 1.06 NG/DL (0.89-1.76)
[2023-07-02 18:57] LABS: ALBUMIN 3.5 G/DL (3.2-5.2); ALKALINE PHOSPHATASE 68 U/L (46-116); ALT/SGPT 18 U/L (7.0-40); AST/SGOT 9 U/L (<34); BILIRUBIN,TOTAL 1.8 MG/DL (0.3-1.2); BLOOD UREA NITROGEN 9 MG/DL (9-23); CALCIUM LEVEL 8.5 MG/DL (8.3-10.6); CARBON DIOXIDE LEVEL 29 MMOL/L (20-31); CHLORIDE LEVEL 102 MMOL/L (98-107); CHOLESTEROL LEVEL 95 MG/DL (<200); CHOLESTEROL RISK RATIO 2.91 (<5); CREATININE FOR GFR 0.63 MG/DL (0.70-1.30); GLOMERULAR FILTRATION RATE > 60.0 (>49); GLUCOSE, FASTING 157 MG/DL (74-106); HDL CHOLESTEROL 32.6 MG/DL (>40); LDL CHOLESTEROL 46.6 MG/DL (<100); MAGNESIUM LEVEL 1.6 MG/DL (1.8-2.4); NON-HDL-C 62.4 MG/DL; POTASSIUM SERUM 4.8 MMOL/L (3.5-5.1); SODIUM LEVEL 137 MMOL/L (136-145); TOTAL PROTEIN 6.1 G/DL (5.7-8.2); TRIGLYCERIDES LEVEL 79 MG/DL (<150)
== END ==
LOC: M SFHCCLAY 10:24
PROVIDERS: ATTEND Nurse Practitioner Family
DX: E11.9 Type 2 diabetes mellitus without complications (principal); R79.89 Other specified abnormal findings of blood chemistry; G47.33 Obstructive sleep apnea (adult) (pediatric); G43.409 Hemiplegic migraine, not intractable, without status migrainosus

== ENCOUNTER → 2023-09-16 | Outpatient (CLI) | payer MEDICARE, OTHER ==
[~2023-09-16] MED LIST changes: +EZET10TA58 PO; -ZETI10TA16 PO
== END ==
LOC: M RAD 07:42
PROVIDERS: ATTEND Physician Assistant
DX: M54.16 Radiculopathy, lumbar region (principal); M51.27 Other intervertebral disc displacement, lumbosacral region; M51.26 Other intervertebral disc displacement, lumbar region

== ENCOUNTER → 2023-10-21 | Outpatient (CLI) | payer MEDICARE, OTHER | LOC: M PLAIMG 12:27 | PROVIDERS: ATTEND Nurse Practitioner Family | DX: J44.9 Chronic obstructive pulmonary disease, unspecified (principal) ==

== ENCOUNTER → 2023-12-25 | Outpatient (REF) | payer MEDICARE, OTHER ==
[2023-12-25 18:01] LABS: BASO % 0.5 % (0.0-1.0); EOS # 0.2 10^3/uL (0.0-0.5); HEMATOCRIT 46.2 % (42.0-52.0); HEMOGLOBIN 15.3 g/dl (13.5-17.5); LYMPH # 1.6 10^3/uL (1.5-5.0); LYMPH % 26.9 % (24.0-44.0); MEAN CORPUSCULAR HEMOGLOBIN 29.9 pg (27.0-33.0); MEAN CORPUSCULAR HGB CONC 33.1 g/dl (32.0-36.5); MEAN CORPUSCULAR VOLUME 90.4 fl (80.0-96.0); MONO # 0.4 10^3/uL (0.0-0.8); MONO % 7.1 % (2.0-8.0); NEUTROPHILS # 3.8 10^3/uL (1.5-8.5); NEUTROPHILS % 62.5 % (36.0-66.0); PLATELET COUNT, AUTOMATED 182 10^3/uL (150-450); RED BLOOD COUNT 5.11 10^6/uL (4.30-6.10); WHITE BLOOD COUNT 6.1 10^3/uL (4.0-10.0)
[2023-12-25 18:33] LABS: FREE T4 1.09 NG/DL (0.89-1.76); THYROID STIMULATING HORMONE 2.676 uIU/ML (0.55-4.78)
[2023-12-25 18:34] LABS: ALBUMIN 3.7 G/DL (3.2-5.2); ALKALINE PHOSPHATASE 69 U/L (46-116); ALT/SGPT 23 U/L (7.0-40); AST/SGOT 13 U/L (<34); BILIRUBIN,TOTAL 1.6 MG/DL (0.3-1.2); BLOOD UREA NITROGEN 10 MG/DL (9-23); CARBON DIOXIDE LEVEL 31 MMOL/L (20-31); CHLORIDE LEVEL 102 MMOL/L (98-107); CHOLESTEROL LEVEL 108 MG/DL (<200); CHOLESTEROL RISK RATIO 3.78 (<5); CREATININE FOR GFR 0.65 MG/DL (0.70-1.30); GLOMERULAR FILTRATION RATE > 60.0 (>49); GLUCOSE, FASTING 146 MG/DL (74-106); HDL CHOLESTEROL 28.5 MG/DL (>40); LDL CHOLESTEROL 59.3 MG/DL (<100); MAGNESIUM LEVEL 1.6 MG/DL (1.8-2.4); NON-HDL-C 79.5 MG/DL; POTASSIUM SERUM 4.6 MMOL/L (3.5-5.1); SODIUM LEVEL 137 MMOL/L (136-145); TOTAL PROTEIN 6.5 G/DL (5.7-8.2); TRIGLYCERIDES LEVEL 101 MG/DL (<150)
[2023-12-25 19:03] LABS: HEMOGLOBIN A1c 7.1 % (4.0-6.0)
== END ==
LOC: M SFHCCLAY 10:31
PROVIDERS: ATTEND Nurse Practitioner Family
DX: E11.9 Type 2 diabetes mellitus without complications (principal); R79.89 Other specified abnormal findings of blood chemistry; G47.33 Obstructive sleep apnea (adult) (pediatric); G43.409 Hemiplegic migraine, not intractable, without status migrainosus

== ENCOUNTER → 2024-01-22 | Outpatient (REF) | payer MEDICARE, OTHER | LOC: M SFHCCLAY 16:50 | PROVIDERS: ATTEND Nurse Practitioner Family | DX: J44.1 Chronic obstructive pulmonary disease with (acute) exacerbation (principal) ==

== ENCOUNTER → 2024-01-23 | Outpatient (CLI) | payer MEDICARE, OTHER | LOC: M CLY 07:50 | PROVIDERS: ATTEND Nurse Practitioner Family | DX: J44.1 Chronic obstructive pulmonary disease with (acute) exacerbation (principal) ==

== ENCOUNTER → 2024-05-20 | Outpatient (CLI) | payer MEDICARE, OTHER | LOC: M RAD 07:27 | PROVIDERS: ATTEND Nurse Practitioner Family | DX: Z12.2 Encounter for screening for malignant neoplasm of respiratory organs (principal); Z87.891 Personal history of nicotine dependence ==

== ENCOUNTER → 2024-06-10 | Outpatient (CLI) | payer MEDICARE, OTHER | LOC: M RAD 06:55 | PROVIDERS: ATTEND Physician Assistant | DX: I77.811 Abdominal aortic ectasia (principal) ==

== ENCOUNTER → 2024-08-21 | Outpatient (CLI) | payer MEDICARE, OTHER | LOC: M PLAIMG 09:39 | PROVIDERS: ATTEND Nurse Practitioner Adult Health | DX: J44.9 Chronic obstructive pulmonary disease, unspecified (principal) ==

== ENCOUNTER → 2024-09-02 | Outpatient (CLI) | payer MEDICARE, OTHER | LOC: M RAD 06:55 | PROVIDERS: ATTEND Nurse Practitioner Adult Health | DX: R91.8 Other nonspecific abnormal finding of lung field (principal); J44.9 Chronic obstructive pulmonary disease, unspecified; F17.218 Nicotine dependence, cigarettes, with other nicotine-induced disorders ==

== ENCOUNTER → 2024-12-02 | Outpatient (CLI) | payer MEDICARE, OTHER ==
[2024-12-02 14:11] LABS: HEMATOCRIT 49.3 % (42.0-52.0); HEMOGLOBIN 16.4 g/dl (13.5-17.5); MEAN CORPUSCULAR HEMOGLOBIN 29.4 pg (27.0-33.0); MEAN CORPUSCULAR HGB CONC 33.3 g/dl (32.0-36.5); MEAN CORPUSCULAR VOLUME 88.5 fl (80.0-96.0); PLATELET COUNT, AUTOMATED 200 10^3/uL (150-450); RED BLOOD COUNT 5.57 10^6/uL (4.30-6.10)
[2024-12-02 14:29] LABS: ALBUMIN 3.5 G/DL (3.2-5.2); ALKALINE PHOSPHATASE 83 U/L (40-129); ALT/SGPT 23 U/L (7.0-40); AST/SGOT 13 U/L (<34); BILIRUBIN,TOTAL 1.3 MG/DL (0.3-1.2); BLOOD UREA NITROGEN 13 MG/DL (9-23); CALCIUM LEVEL 9.8 MG/DL (8.3-10.6); CARBON DIOXIDE LEVEL 32 MMOL/L (20-31); CHLORIDE LEVEL 99 MMOL/L (98-107); CHOLESTEROL LEVEL 111 MG/DL (<200); CHOLESTEROL RISK RATIO 3.66 (<5); CREATININE FOR GFR 0.62 MG/DL (0.70-1.30); GLOMERULAR FILTRATION RATE > 60.0 (>49); GLUCOSE, FASTING 279 MG/DL (74-106); HDL CHOLESTEROL 30.3 MG/DL (>40); LDL CHOLESTEROL 64.3 MG/DL (<100); MAGNESIUM LEVEL 1.5 MG/DL (1.8-2.4); NON-HDL-C 80.7 MG/DL; SODIUM LEVEL 137 MMOL/L (136-145); TOTAL PROTEIN 6.7 G/DL (5.7-8.2); TRIGLYCERIDES LEVEL 82 MG/DL (<150)
== END ==
LOC: M WUC 09:39
PROVIDERS: ATTEND Physician Assistant
DX: I25.10 Atherosclerotic heart disease of native coronary artery without angina pectoris (principal); R06.02 Shortness of breath; I11.9 Hypertensive heart disease without heart failure; E78.00 Pure hypercholesterolemia, unspecified; E83.42 Hypomagnesemia

== ENCOUNTER → 2024-12-24 | Outpatient (CLI) | payer MEDICARE, OTHER | LOC: M WUC 10:35 | PROVIDERS: ATTEND Physician Assistant Surgical | DX: T56.891A Toxic effect of other metals, accidental (unintentional), initial encounter (principal); Z47.89 Encounter for other orthopedic aftercare; T56.2X4A Toxic effect of chromium and its compounds, undetermined, initial encounter ==

== ENCOUNTER → 2024-12-28 | Outpatient (REF) | payer MEDICARE, OTHER ==
[2024-12-28 13:41] LABS: HEMOGLOBIN A1c 11.6 % (4.0-6.0)
[2024-12-28 13:46] LABS: PSA SCREENING 0.59 NG/ML (< 4.00)
[2024-12-28 13:47] LABS: ALBUMIN 3.4 G/DL (3.2-5.2); ALKALINE PHOSPHATASE 79 U/L (40-129); ALT/SGPT 19 U/L (7.0-40); AST/SGOT 9 U/L (<34); BILIRUBIN,TOTAL 1.5 MG/DL (0.3-1.2); BLOOD UREA NITROGEN 14 MG/DL (9-23); CALCIUM LEVEL 9.1 MG/DL (8.3-10.6); CARBON DIOXIDE LEVEL 32 MMOL/L (20-31); CHLORIDE LEVEL 101 MMOL/L (98-107); CREATININE FOR GFR 0.58 MG/DL (0.70-1.30); GLOMERULAR FILTRATION RATE > 60.0 (>49); GLUCOSE, FASTING 236 MG/DL (74-106); POTASSIUM SERUM 5.2 MMOL/L (3.5-5.1); SODIUM LEVEL 137 MMOL/L (136-145); TOTAL PROTEIN 6.6 G/DL (5.7-8.2)
== END ==
LOC: M SFHCCLAY 07:57
PROVIDERS: ATTEND Nurse Practitioner Family
DX: Z12.5 Encounter for screening for malignant neoplasm of prostate (principal); E11.9 Type 2 diabetes mellitus without complications
CPT/HCPCS: 80053; 83036; G0103

== ENCOUNTER → 2024-12-30 | Outpatient (REF) | payer MEDICARE, OTHER | LOC: M LAB REF 09:10 | PROVIDERS: ATTEND Nurse Practitioner Adult Health | DX: J44.9 Chronic obstructive pulmonary disease, unspecified (principal) ==

== ENCOUNTER → 2025-01-06 | Outpatient (REF) | payer MEDICARE, OTHER ==
[2025-01-06 11:48] LABS: ALBUMIN 3.3 G/DL (3.2-5.2); ALKALINE PHOSPHATASE 77 U/L (40-129); ALT/SGPT 21 U/L (7.0-40); AST/SGOT 11 U/L (<34); BILIRUBIN,TOTAL 1.1 MG/DL (0.3-1.2); BLOOD UREA NITROGEN 11 MG/DL (9-23); CALCIUM LEVEL 8.5 MG/DL (8.3-10.6); CARBON DIOXIDE LEVEL 28 MMOL/L (20-31); CHLORIDE LEVEL 100 MMOL/L (98-107); CHOLESTEROL LEVEL 114 MG/DL (<200); CHOLESTEROL RISK RATIO 3.83 (<5); CREATININE FOR GFR 0.55 MG/DL (0.70-1.30); GLOMERULAR FILTRATION RATE > 60.0 (>49); GLUCOSE, FASTING 310 MG/DL (74-106); HDL CHOLESTEROL 29.7 MG/DL (>40); LDL CHOLESTEROL 52.5 MG/DL (<100); MAGNESIUM LEVEL 1.7 MG/DL (1.8-2.4); NON-HDL-C 84.3 MG/DL; POTASSIUM SERUM 4.9 MMOL/L (3.5-5.1); SODIUM LEVEL 137 MMOL/L (136-145); TOTAL PROTEIN 6.4 G/DL (5.7-8.2); TRIGLYCERIDES LEVEL 159 MG/DL (<150)
[2025-01-06 11:49] LABS: FREE T4 1.15 NG/DL (0.89-1.76)
[2025-01-06 11:50] LABS: THYROID STIMULATING HORMONE 1.596 uIU/ML (0.55-4.78)
[2025-01-06 12:02] LABS: CREATININE, URINE 72.3 MG/DL; MAU/CREAT RATIO 20.7 MCG/MG (0.0-30.0)
== END ==
LOC: M SFHCCLAY 08:03
PROVIDERS: ATTEND Nurse Practitioner Family
DX: E11.9 Type 2 diabetes mellitus without complications (principal); G47.33 Obstructive sleep apnea (adult) (pediatric); G43.409 Hemiplegic migraine, not intractable, without status migrainosus; R79.89 Other specified abnormal findings of blood chemistry

== ENCOUNTER → 2025-01-08 | Outpatient (REF) | payer MEDICARE, OTHER | LOC: M LAB REF 10:39 | PROVIDERS: ATTEND Nurse Practitioner Adult Health | DX: J44.9 Chronic obstructive pulmonary disease, unspecified (principal) ==

== ENCOUNTER → 2025-01-18 | Outpatient (CLI) | payer MEDICARE, OTHER ==
[2025-01-18 12:37] LABS: HEMATOCRIT 45.3 % (42.0-52.0); HEMOGLOBIN 14.8 g/dl (13.5-17.5); MEAN CORPUSCULAR HGB CONC 32.7 g/dl (32.0-36.5); MEAN CORPUSCULAR VOLUME 88.8 fl (80.0-96.0); PLATELET COUNT, AUTOMATED 192 10^3/uL (150-450); WHITE BLOOD COUNT 6.5 10^3/uL (4.0-10.0)
[2025-01-18 12:59] LABS: BLOOD UREA NITROGEN 18 MG/DL (9-23); CALCIUM LEVEL 8.7 MG/DL (8.3-10.6); CARBON DIOXIDE LEVEL 29 MMOL/L (20-31); CHLORIDE LEVEL 103 MMOL/L (98-107); CREATININE FOR GFR 0.68 MG/DL (0.70-1.30); GLOMERULAR FILTRATION RATE > 60.0 (>49); GLUCOSE, FASTING 217 MG/DL (74-106); POTASSIUM SERUM 4.6 MMOL/L (3.5-5.1); SODIUM LEVEL 138 MMOL/L (136-145)
== END ==
LOC: M WUC 10:08
PROVIDERS: ATTEND Physician Assistant
DX: I25.10 Atherosclerotic heart disease of native coronary artery without angina pectoris (principal)

== ENCOUNTER → 2025-01-27 | Outpatient (CLI) | payer MEDICARE, OTHER | LOC: M CARPUL 15:55 | PROVIDERS: ATTEND Physician Assistant | DX: R06.02 Shortness of breath (principal) ==

== ENCOUNTER → 2025-02-23 | Outpatient (REF) | payer MEDICARE, OTHER ==
[2025-02-23 13:16] LABS: BLOOD UREA NITROGEN 16 MG/DL (9-23); CALCIUM LEVEL 8.9 MG/DL (8.3-10.6); CARBON DIOXIDE LEVEL 30 MMOL/L (20-31); CHLORIDE LEVEL 101 MMOL/L (98-107); CREATININE FOR GFR 0.73 MG/DL (0.70-1.30); GLOMERULAR FILTRATION RATE > 60.0 (>49); GLUCOSE, FASTING 194 MG/DL (74-106); HEMATOCRIT 41.6 % (42.0-52.0); HEMOGLOBIN 13.6 g/dl (13.5-17.5); MAGNESIUM LEVEL 1.9 MG/DL (1.8-2.4); MEAN CORPUSCULAR HEMOGLOBIN 29.1 pg (27.0-33.0); MEAN CORPUSCULAR HGB CONC 32.7 g/dl (32.0-36.5); MEAN CORPUSCULAR VOLUME 89.1 fl (80.0-96.0); PLATELET COUNT, AUTOMATED 244 10^3/uL (150-450); POTASSIUM SERUM 5.1 MMOL/L (3.5-5.1); RED BLOOD COUNT 4.67 10^6/uL (4.30-6.10); SODIUM LEVEL 134 MMOL/L (136-145); WHITE BLOOD COUNT 7.4 10^3/uL (4.0-10.0)
== END ==
LOC: M LABWUC 12:28
PROVIDERS: ATTEND Physician Assistant
DX: I25.10 Atherosclerotic heart disease of native coronary artery without angina pectoris (principal); I48.0 Paroxysmal atrial fibrillation; I11.9 Hypertensive heart disease without heart failure

== ENCOUNTER → 2025-03-04 | Outpatient (CLI) | payer MEDICARE, OTHER | LOC: M PLAIMG 12:43 | PROVIDERS: ATTEND Physician Assistant | DX: R60.0 Localized edema (principal); J44.9 Chronic obstructive pulmonary disease, unspecified; R05.9 Cough, unspecified; J90 Pleural effusion, not elsewhere classified; J98.11 Atelectasis ==

== ENCOUNTER → 2025-03-24 | Outpatient (CLI) | payer MEDICARE, OTHER | LOC: M RAD 11:08 | PROVIDERS: ATTEND Nurse Practitioner Adult Health | DX: R91.8 Other nonspecific abnormal finding of lung field (principal); Z95.5 Presence of coronary angioplasty implant and graft; J90 Pleural effusion, not elsewhere classified ==

== ENCOUNTER → 2025-05-31 | Outpatient (CLI) | payer MEDICARE, OTHER ==
[2025-05-31 09:26] LABS: CALCIUM LEVEL 9.6 MG/DL (8.3-10.6); CARBON DIOXIDE LEVEL 29.0 MMOL/L (20-31); CHLORIDE LEVEL 99.0 MMOL/L (98-107); CREATININE FOR GFR 1.03 MG/DL (0.70-1.30); GLOMERULAR FILTRATION RATE 79.1 (>49); POTASSIUM SERUM 4.6 MMOL/L (3.5-5.1); SODIUM LEVEL 138.0 MMOL/L (136-145)
== END ==
LOC: M RAD 07:52
PROVIDERS: ATTEND Physician Assistant
DX: J90 Pleural effusion, not elsewhere classified (principal); R60.0 Localized edema; I11.9 Hypertensive heart disease without heart failure

== ENCOUNTER → 2025-06-22 | Outpatient (CLI) | payer MEDICARE, OTHER | LOC: M RAD 08:42 | PROVIDERS: ATTEND Nurse Practitioner Adult Health | DX: R91.8 Other nonspecific abnormal finding of lung field (principal); I70.0 Atherosclerosis of aorta; I25.10 Atherosclerotic heart disease of native coronary artery without angina pectoris; J90 Pleural effusion, not elsewhere classified; J47.9 Bronchiectasis, uncomplicated ==